=== PATIENT | female | born 2000 | race Two or more races ===

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

== ENCOUNTER 2021-01-04 09:02 | Outpatient (REF) | payer OTHER, SELFPAY ==
[2021-01-04 10:13] LABS: MANUAL DIFF FLAG NO
[2021-01-04 10:14] LABS: Basophils Percent Auto 0.6 % (0-2); Eosinophils Percent Auto 0.4 % (0-4); Hematocrit 40.1 % (37-47); Hemoglobin 12.9 g/dl (12.0-16.0); Imm Gran Abs Auto 0.03 X10*3/uL (0.00-0.03); Imm Gran Pct Auto 0.4 % (0.0-0.4); Lymphocytes Absolute Auto 2.3 X10*3/uL (1.2-4.9); Lymphocytes Percent Auto 32.8 % (20-40); Mean Corpuscular HGB Conc 32.2 g/dl (31.0-35.0); Mean Corpuscular Hemoglobin 28.8 pg (27.0-33.0); Mean Corpuscular Volume 89.5 fL (80-98); Mean Platelet Volume 10.2 fL (9.4-12.3); Monocytes Absolute Auto 0.4 X10*3/uL (0.1-1.2); Monocytes Percent Auto 5.9 % (2-11); Neutrophils Absolute Auto 4.3 X10*3/uL (2.0-8.3); Neutrophils Percent Auto 59.9 % (45-73); Platelet Count 313 X10*3/uL (160-400); Red Blood Count 4.48 X10*6/uL (4.20-5.50); Red Cell Distribution Width 12.8 % (11.0-16.0); White Blood Count 7.1 X10*3/uL (4.8-10.8)
[2021-01-04 11:07] LABS: Iron 93 mcg/dL (30-160)
[2021-01-04 11:16] LABS: Ferritin 24 ng/mL (10-122)
[2021-01-08 15:06] LABS: Percent Iron Saturation 21 % (15-50); Total Iron Binding Capacity 445 mcg/dL (228-428); Unsaturated Iron Binding 352 ug/dL
== END 2021-01-04 09:03 | disposition home or self-care (01) ==
LOC: HO.LAB 09:02
PROVIDERS: PCP Pediatrics; Visit Provider Pediatrics
DX: E61.1 Iron deficiency (principal)
CPT/HCPCS: 36415; 82728; 83540; 85025

== ENCOUNTER 2021-05-29 09:35 | Outpatient (REF) | payer OTHER, SELFPAY ==
[2021-05-29 11:45] LABS: COVID-19 Test Negative (Negative)
== END 2021-05-29 09:36 | disposition home or self-care (01) ==
LOC: HO.LAB 09:35
PROVIDERS: Visit Provider Internal Medicine
DX: Z20.822 Contact with and (suspected) exposure to COVID-19 (principal)
CPT/HCPCS: 87635; C9803

== ENCOUNTER 2021-06-24 09:08 | Outpatient (REF) | payer OTHER, SELFPAY ==
[2021-06-24 09:29] LABS: COVID-19 Test Negative (Negative); IDNOW Serial# 16C4AD1C
== END 2021-06-24 09:09 | disposition home or self-care (01) ==
LOC: HO.LAB 09:08
PROVIDERS: PCP Pediatrics; Visit Provider Internal Medicine
DX: Z20.822 Contact with and (suspected) exposure to COVID-19 (principal)
CPT/HCPCS: 87635; C9803

== ENCOUNTER 2021-07-15 16:42 | Emergency (ER) | payer OTHER, SELFPAY ==
[2021-07-15 18:33] VITALS: BP 131/77; PULSE 84; RESP 18; TEMP 37.1; O2SAT 100; BMI 22.1
[2021-07-15 20:09] LABS: Basophils Percent Auto 0.5 % (0-2); Eosinophils Percent Auto 0.3 % (0-4); Hematocrit 41.5 % (37.0-47.0); Hemoglobin 13.2 g/dl (12.0-16.0); Imm Gran Abs Auto 0.03 X10*3/uL (0.00-0.03); Imm Gran Pct Auto 0.4 % (0.0-0.4); Lymphocytes Percent Auto 27.2 % (20-40); MANUAL DIFF FLAG NO; Mean Corpuscular HGB Conc 31.8 g/dl (31.0-35.0); Mean Corpuscular Hemoglobin 29.1 pg (27.0-33.0); Mean Corpuscular Volume 91.4 fL (80.0-98.0); Mean Platelet Volume 9.5 fL (9.4-12.3); Monocytes Absolute Auto 0.4 X10*3/uL (0.1-1.2); Monocytes Percent Auto 5.3 % (2-11); Neutrophils Percent Auto 66.3 % (45-73); Platelet Count 288 X10*3/uL (160-400); Red Blood Count 4.54 X10*6/uL (4.20-5.50); Red Cell Distribution Width 11.9 % (11.0-16.0); White Blood Count 7.5 X10*3/uL (4.8-10.8)
[2021-07-15 20:10] LABS: Appearance Urine CLEAR; Color Urine YELLOW; Glucose Urine UA NEG (NEG); Leukocyte Esterase Urine NEG (NEG); Nitrite Urine NEG (NEG); Specific Gravity - Urine 1.015 (1.005-1.025); Urine Blood NEG (NEG); Urine Ketones NEG (NEG); Urine Protein NEG (NEG-TRACE)
[2021-07-15 20:12] LABS: UPreg QC Valid YES; Urine Pregnancy NEGATIVE (NEGATIVE)
[2021-07-15 20:28] LABS: Alanine Aminotransferase 16 U/L (0-31); Albumin Level 4.5 g/dL (3.5-5.0); Alkaline Phosphatase 48 U/L (39-117); Anion Gap 11 (12-20); Aspartate Amino Transferase 18 U/L (5-31); Bilirubin Total 0.4 mg/dL (0.0-1.0); Blood Urea Nitrogen 8 mg/dL (9-16); Calcium 9.7 mg/dL (8.4-10.2); Carbon Dioxide 26 mmol/L (22-29); Chloride 103 mmol/L (96-108); Creatinine Clr Calc Pharmacy 110.1; Estimated Glomerular Filt Rate > 60; Glucose Random 91 mg/dL (60-115); Potassium 4.3 mmol/L (3.3-5.1); Sodium 136 mmol/L (135-145); Total Protein 7.5 g/dL (6.5-8.0)
--- NOTE | 2021-07-15 21:51 | ED_ITS ---
HPI - Abdominal Pain General Chief Complaint: Abdominal Pain Stated Complaint: lower abd pain Time Seen by Provider: 07/15/21 21:50 Source: patient Mode of arrival: ambulatory Limitations: no limitations History of Present Illness HPI narrative: Patient is a 20 year old female presenting to the emergency department today with abdominal pain. Patient states that she has had 3 days of lower back pain and abdominal pain. Patient denies any dizziness, lightheadedness, nausea, vomiting, fever, chills, blurry vision, double vision, loss of vision, chest pain, difficulty breathing, shortness of breath, back pain, night sweats, pain with urination, increased urinary frequency, increased urinary urgency, blood in her urine or stool, vaginal bleeding, vaginal discharge, syncope or a near syncopal episode, recent trauma or falls, bowel incontinence, bladder incontinence, bowel retention, bladder retention, or any other complaints at this time. MD elicited complaint: abdominal pain Pertinent past history: none Related Data Previous Rx's Medication Instructions Recorded prednisone 50 mg tablet 50 mg PO DAILY #5 tab 10/02/20 Allergies Allergy/AdvReac Type Severity Reaction Status Date / Time No Known Allergies Allergy Verified 07/15/21 18:33 Review of Systems Constitutional: Reports no additional constitutional complaints, Denies chills, Denies fever(s) and Denies night sweats Eyes: Reports no additional eye complaints, Denies blurry vision, Denies change in vision, Denies diplopia, Denies eye discharge, Denies loss of vision and Denies eye pain Denies dizziness Cardiovascular: Reports no additional cardiovascular complaints, Denies chest pain, Denies lightheadedness, Denies Loss of Consciousness and Denies dyspnea Respiratory: Reports no additional respiratory complaints and Denies dyspnea Gastrointestinal: Reports no additional gastrointestinal complaints, Reports abdominal pain, Denies melena, Denies hematochezia, Denies change in bowel habits and Denies change in stool character Genitourinary: Denies hematuria, Denies urinary frequency, Denies dysuria, Denies urinary incontinence, Denies urinary hesitancy and Denies urinary urgency Musculoskeletal: Reports no additional musculoskeletal complaints, Denies numbness and Denies tingling Denies dizziness, Denies loss of vision, Denies numbness and Denies tingling Psychiatric: Reports no additional psychiatric complaints Endocrine: Reports no additional endocrine complaints Hematologic/Lymphatic: Reports no additional hematologic/lymphatic complaints Allergic/Immunologic: Reports no additional allergic/immunologic complaints PMFSH Past Medical History Attestation statement: The following information was validated with the patient. Source: old records reviewed Medical History Asthma Social History Social History Advance Directives: No Advance Directives Information Provided: No Physical Exam ED Vital Signs: Vital Signs - 24 hr 07/15/21 18:33 Temperature 98.7 F Pulse Rate 84 Respiratory Rate 18 Blood Pressure 131/77 Pulse Oximetry 100 BMI result Body Mass Index 22.1 Const General: cooperative, no acute distress, alert and awake Nutritional Appearance: well nourished Orientation/consciousness: patient oriented x3 Limitations: no limitations HENMT Head: Yes normal to inspection and Yes atraumatic Ears: hearing grossly normal bilaterally and external ears normal General nose exam: Normal external nose present, no nasal discharge noted and no epistaxis Face and sinus: Yes normal facial exam, No abrasion and No laceration Mouth: Normal oral and palatal mucosa present, no drooling and no muffled voice Eyes General: appearance normal, both eyes and all related structures Periorbital: periorbital findings normal Eyelids: Yes eyelids normal Conjunctivae: conjunctivae normal Pupils: Equal, round and reactive pupils present EOM: EOMs intact bilaterally Neck Neck: Yes normal visual inspection, Yes full ROM and Yes no lymphadenopathy Chest Chest palpation & inspection: normal inspection of the chest Resp Effort & Inspection: normal respiratory effort and able to speak in complete sentences GI Inspection: Yes normal to inspection Palpation (GI): Soft to palpation, not firm and nontender Neuro General: patient oriented x3 and moves all extremities Cranial nerves: Yes Equal, round and reactive pupils present Cognition (Neuro): normal cognition Motor exam (neuro): 5/5 motor strength present throughout Sensory Exam: Normal double simultaneous stimulation for sensation Coordination: [id number] test normal Extrem General: Yes normal to inspection, Yes full ROM and Yes capillary refill normal Psych Appearance: grossly normal Mental Status: mental status grossly normal Affect: normal affect Attitude: cooperative Thought process: Normal thought process present Thought content: Normal thought content present Insight: Good insight present (Psych) MDM - Abdominal Pain MDM Narrative Medical decision making narrative: Patient is a 20 year old female presenting to the emergency department today with abdominal pain. Patient's physical exam was unremarkable, including a normal GI exam. Patient's blood work was unremarkable. Patient's urine showed no acute process. I explained my physical exam findings as well as all test results to the patient. I answered all questions asked by the patient. Patient received IM Toradol which she stated helped her symptoms significantly. I stressed the importance of the patient taking her medication as prescribed. I stressed the importance of the patient following up with her primary care provider. I stressed the importance of the patient returning to the emergency department immediately if her symptoms were to worsen or if she were to develop any dizziness, shortness of breath, difficulty breathing, chest pain, blurry vision, loss of vision, nausea, vomiting, abdominal pain, fever, chills, back pain, or any other complaints. Patient verbalized agreement and understanding with this treatment plan and discharge. Differential Diagnosis Differential diagnosis: Likely abdominal pain and endometriosis Medical Records Attestation: I reviewed the patient's medical records. Lab Data Attestation: I reviewed the patient's lab results. Result diagrams: 07/15/21 19:59 07/15/21 19:59 Labs: Lab Results 07/15/21 07/15/21 07/15/21 Range/Units 19:59 19:59 20:00 WBC 7.5 (4.8-10.8) X10*3/uL RBC 4.54 (4.20-5.50) X10*6/uL Hgb 13.2 (12.0-16.0) g/dl Hct 41.5 (37.0-47.0) % MCV 91.4 (80.0-98.0) fL MCH 29.1 (27.0-33.0) pg MCHC 31.8 (31.0-35.0) g/dl RDW 11.9 (11.0-16.0) % Plt Count 288 (160-400) X10*3/uL MPV 9.5 (9.4-12.3) fL Immature Gran % (Auto) 0.4 (0.0-0.4) % Neut % (Auto) 66.3 (45-73) % Lymph % (Auto) 27.2 (20-40) % Trinity % (Auto) 5.3 (2-11) % Eos % (Auto) 0.3 (0-4) % Baso % (Auto) 0.5 (0-2) % Lymph # (Auto) 2.0 (1.2-4.9) X10*3/uL Trinity # (Auto) 0.4 (0.1-1.2) X10*3/uL Eos # (Auto) 0.0 (0.0-0.4) X10*3/uL Baso # (Auto) 0.0 (0.0-0.2) X10*3/uL Abs Immat Gran (auto) 0.03 (0.00-0.03) X10*3/uL Absolute Neuts (auto) 5.0 (2.0-8.3) x10*3/uL Absolute Nucleated RBC 0.000 (0.0-0.012) X10*3/uL Nucleated RBC % (auto) 0.0 (0.0-0.2) /100WBC Sodium 136 (135-145) mmol/L Potassium 4.3 (3.3-5.1) mmol/L Chloride 103 (96-108) mmol/L Carbon Dioxide 26 (22-29) mmol/L Anion Gap 11 L (12-20) BUN 8 L (9-16) mg/dL Creatinine 0.68 (0.5-1.4) mg/dL Estim Creat Clear Calc 110.1 Estimated GFR > 60 Random Glucose 91 (60-115) mg/dL Calcium 9.7 (8.4-10.2) mg/dL Total Bilirubin 0.4 (0.0-1.0) mg/dL AST 18 (5-31) U/L ALT 16 (0-31) U/L Alkaline Phosphatase 48 (39-117) U/L Total Protein 7.5 (6.5-8.0) g/dL Albumin 4.5 (3.5-5.0) g/dL Urine Color Urine Appearance Urine pH (5.0-8.0) Ur Specific [place] (1.005-1.025) Urine Protein (NEG-TRACE) MG/DL Urine Glucose (UA) (NEG) MG/DL Urine Ketones (NEG) MG/DL Urine Blood (NEG) Urine Nitrite (NEG) Ur Leukocyte Esterase (NEG) Urine Test NEGATIVE (NEGATIVE) 07/15/21 Range/Units 20:00 WBC (4.8-10.8) X10*3/uL RBC (4.20-5.50) X10*6/uL Hgb (12.0-16.0) g/dl Hct (37.0-47.0) % MCV (80.0-98.0) fL MCH (27.0-33.0) pg MCHC (31.0-35.0) g/dl RDW (11.0-16.0) % Plt Count (160-400) X10*3/uL MPV (9.4-12.3) fL Immature Gran % (Auto) (0.0-0.4) % Neut % (Auto) (45-73) % Lymph % (Auto) (20-40) % Trinity % (Auto) (2-11) % Eos % (Auto) (0-4) % Baso % (Auto) (0-2) % Lymph # (Auto) (1.2-4.9) X10*3/uL Trinity # (Auto) (0.1-1.2) X10*3/uL Eos # (Auto) (0.0-0.4) X10*3/uL Baso # (Auto) (0.0-0.2) X10*3/uL Abs Immat Gran (auto) (0.00-0.03) X10*3/uL Absolute Neuts (auto) (2.0-8.3) x10*3/uL Absolute Nucleated RBC (0.0-0.012) X10*3/uL Nucleated RBC % (auto) (0.0-0.2) /100WBC Sodium (135-145) mmol/L Potassium (3.3-5.1) mmol/L Chloride (96-108) mmol/L Carbon Dioxide (22-29) mmol/L Anion Gap (12-20) BUN (9-16) mg/dL Creatinine (0.5-1.4) mg/dL Estim Creat Clear Calc Estimated GFR Random Glucose (60-115) mg/dL Calcium (8.4-10.2) mg/dL Total Bilirubin (0.0-1.0) mg/dL AST (5-31) U/L ALT (0-31) U/L Alkaline Phosphatase (39-117) U/L Total Protein (6.5-8.0) g/dL Albumin (3.5-5.0) g/dL Urine Color YELLOW Urine Appearance CLEAR Urine pH 7.0 (5.0-8.0) Ur Specific [place] 1.015 (1.005-1.025) Urine Protein NEG (NEG-TRACE) MG/DL Urine Glucose (UA) NEG (NEG) MG/DL Urine Ketones NEG (NEG) MG/DL Urine Blood NEG (NEG) Urine Nitrite NEG (NEG) Ur Leukocyte Esterase NEG (NEG) Urine Test (NEGATIVE) Discharge Plan Discharge Clinical Impression: Abdominal pain Patient Disposition: Home, Self-Care Instructions: Abdominal Pain (ED) Additional Instructions: Follow up with your primary care provider. Return to the emergency department immediately if your symptoms worsen or if you develop any dizziness, shortness of breath, difficulty breathing, chest pain, blurry vision, loss of vision, nausea, vomiting, abdominal pain, fever, chills, back pain, or any other complaints. Prescriptions: No Action prednisone 50 mg tablet 50 mg PO DAILY Qty: 5 0RF Referrals: Lucia Crowder MD [Primary Care Provider] - 2 days Nestor Ríos MD [Physician] - 2 days Stand Alone Forms: Work/School Release Interventions: ED Discharge Assessment Last Done: 07/15/21 23:01 Discharge Date/Time: 07/15/21 23:04 Print Language: Ecuadorean
[2021-07-15] MEDS: Ketorolac Tromethamine 30 MG/ML VIAL IM (22:42)
== END 2021-07-15 23:04 | disposition home or self-care (01) ==
PROVIDERS: Emergency Provider Internal Medicine; PCP Pediatrics
DX: R10.9 Unspecified abdominal pain (principal); M54.50 Low back pain, unspecified; Z79.899 Other long term (current) drug therapy
CPT/HCPCS: 36415; 80053; 81003; 81025; 85025; 96372; 99284; J1885

== ENCOUNTER 2021-07-30 13:46 | Outpatient (REF) | payer OTHER, SELFPAY ==
[2021-07-31 05:29] LABS: CT PCR NOT DETECTED (Not Detect.); NG PCR NOT DETECTED (Not Detect.)
== END 2021-07-30 13:47 | disposition home or self-care (01) ==
LOC: HO.LAB 13:46
PROVIDERS: PCP Pediatrics; Visit Provider Obstetrics & Gynecology
DX: Z01.411 Encounter for gynecological examination (general) (routine) with abnormal findings (principal); R10.2 Pelvic and perineal pain
CPT/HCPCS: 81003; 87491; 87591; 99212

== ENCOUNTER 2021-09-09 15:21 | Outpatient (REF) | payer OTHER, SELFPAY ==
--- NOTE | ~2021-09-09 | US_ITS ---
EXAMINATION: US PELVIS CLINICAL INFORMATION: Pelvic and perineal pain COMPARISON: None TECHNIQUE: Transabdominal pelvic ultrasound. Patient declined transvaginal exam. FINDINGS: The uterus is anteverted and measures 6.7 x 3 x 4.7 cm in dimension. No focal uterine lesion is seen. Endometrial thickness is normal measuring 0.6 cm. The ovaries are normal. The right ovary measures 2 x 1.6 x 1.5 cm. The left ovary measures 2.7 x 1.2 x 1.6 cm. There is no fluid in the pelvis. US/US pelvic complete IMPRESSION: Normal pelvic ultrasound
== END 2021-09-09 15:22 | disposition home or self-care (01) ==
LOC: HO.US 15:21
PROVIDERS: Visit Provider Obstetrics & Gynecology
DX: R10.2 Pelvic and perineal pain (principal)
CPT/HCPCS: 76856

== ENCOUNTER 2023-06-03 19:45 | Emergency (ER) | payer MEDICAID, SELFPAY ==
--- NOTE | ~2023-06-03 | XR_ITS ---
EXAMINATION: XR ABDOMEN KUB CLINICAL INDICATION: Constipation COMPARISON: None available. TECHNIQUE: AP view of the abdomen. FINDINGS: The bowel gas pattern is normal with no evidence of ileus or obstruction. Fairly normal stool burden is present in the colon with almost no stool seen in the descending or rectosigmoid. No unusual soft tissue calcifications are noted. The bones are unremarkable. XR/XR KUB IMPRESSION: Unremarkable examination.
[2023-06-03 20:09] VITALS: BP 132/86; PULSE 79; RESP 16; TEMP 36.3; O2SAT 100; BMI 23.4
--- NOTE | 2023-06-03 20:10 | ED.GENADULT ---
HPI - General Adult General Chief complaint: General Medical Stated complaint: constipation Time Seen by Provider: 06/04/23 00:31 Related Data Home Medications ?Medication ?Instructions ?Recorded ?Confirmed budesonide 180 mcg/actuation 1 inh inhalation BID 07/30/21 breath activated powder inhaler (Pulmicort Flexhaler) Previous Rx's ?Medication ?Instructions ?Recorded docusate sodium 100 mg capsule 100 mg PO DAILY PRN constipation 06/04/23 (Colace) #30 caps Allergies Allergy/AdvReac Type Severity Reaction Status Date / Time No Known Allergies Allergy Verified 06/03/23 20:09 [facility] Past Medical History Onset Date is defined in the Problem List Problems that require an onset date and time if occurred within 24 hrs of arrival to the ED Aortic Dissection and Rupture; Neurologic impairment; Cardiopulmonary Arrest; Endotracheal Intubation; Insertion or Replacement of Mechanical Circulatory Assist Device Medical History Asthma Social History Social History Unable to assess alcohol history related to: Unknown Patient Tobacco Use Status: Never used Tobacco Smoked in Last 30 Days: No Advance Directives: No Advance Directives Information Provided: No Gender identity: Female Physical Exam ED Vital Signs: BMI result Body Mass Index 23.4 Course Course Course Narrative: RME- 22 year old female presents for evaluation of constipation. She reports that she has not had a bowel movement in 4 days. Denies any abdominal or rectal pain Medications Administered Discontinued Medications Generic Name Dose Route Start Last Admin Trade Name Freq PRN Reason Stop Dose Admin Magnesium Hydroxide 30 ml 06/04/23 00:38 06/04/23 00:49 Milk Of Magnesia 30 Ml Oral.Susp PO 06/04/23 00:39 30 ml ONCE ONE Administration Discharge Plan Discharge Clinical Impression: Constipation Patient Disposition: Home, Self-Care Instructions: Constipation (ED) Additional Instructions: Drink plenty of fluids and have lot of fibers Have prunes daily Colace 1-2 capsules daily for severe constipation as needed Prescriptions: New docusate sodium [Colace] 100 mg capsule 100 mg PO DAILY PRN (Reason: constipation) Qty: 30 0RF No Action Pulmicort Flexhaler 180 mcg/actuation aerosol powdr breath activated 1 inh inhalation BID Interventions: ED Discharge Assessment Last Done: 06/04/23 00:53 Discharge Date/Time: 06/04/23 00:53 Print Language: Lithuanian
[2023-06-04] MEDS: Milk of Magnesia 30 ML ORAL.SUSP PO (00:49)
[2023-06-04 00:52] VITALS: PULSE 82; RESP 16; O2SAT 100
== END 2023-06-04 00:53 | disposition home or self-care (01) ==
PROVIDERS: Emergency Provider Internal Medicine
DX: K59.00 Constipation, unspecified (principal); R10.2 Pelvic and perineal pain
CPT/HCPCS: 74018; 99283; 99284

== ENCOUNTER 2023-12-14 12:47 | Outpatient (REF) | payer MEDICAID, SELFPAY ==
[2023-12-14 13:00] LABS: MANUAL DIFF FLAG NO
[2023-12-14 13:54] LABS: Basophils Percent Auto 0.6 % (0-2); Eosinophils Percent Auto 0.3 % (0-4); Hematocrit 39.3 % (37.0-47.0); Imm Gran Abs Auto 0.02 X10*3/uL (0.00-0.03); Imm Gran Pct Auto 0.3 % (0.0-0.4); Lymphocytes Absolute Auto 1.9 X10*3/uL (1.2-4.9); Lymphocytes Percent Auto 27.9 % (20-40); Mean Corpuscular HGB Conc 33.1 g/dl (31.0-35.0); Mean Corpuscular Hemoglobin 29.3 pg (27.0-33.0); Mean Corpuscular Volume 88.7 fL (80.0-98.0); Mean Platelet Volume 10.4 fL (9.4-12.3); Monocytes Absolute Auto 0.4 X10*3/uL (0.1-1.2); Monocytes Percent Auto 5.7 % (2-11); Neutrophils Absolute Auto 4.3 x10*3/uL (2.0-8.3); Neutrophils Percent Auto 65.2 % (45-73); Platelet Count 284 X10*3/uL (160-400); Red Blood Count 4.43 X10*6/uL (4.20-5.50); Red Cell Distribution Width 11.9 % (11.0-16.0); White Blood Count 6.6 X10*3/uL (4.8-10.8)
[2023-12-14 14:43] LABS: Cholesterol 193 mg/dL (<200); HDL Cholesterol 62 mg/dL (>40); Iron 101 mcg/dL (30-160); LDL Cholesterol Calculated 112 mg/dL (<100); Percent Iron Saturation 24 % (15-50); Total Iron Binding Capacity 415 mcg/dL (228-428); Triglycerides 99 mg/dL (<150); Unsaturated Iron Binding 314 ug/dL
[2023-12-14 14:48] LABS: Ferritin 22 ng/mL (10-122); TSH reflex Free T4 0.92 uIU/mL (0.32-4.0)
[2023-12-14 16:29] LABS: CT PCR NOT DETECTED (Not Detect.); NG PCR NOT DETECTED (Not Detect.)
[2023-12-15 04:32] LABS: HIV AB/AG Nonreactive (Nonreactive); HIV Num 1 0.04 S/CO (0.00-0.99); ~HepC Num1 0.09 S/CO (0.00-0.79); ~Hepatitis C Antibody Nonreactive (Nonreactive)
== END 2023-12-14 12:48 | disposition home or self-care (01) ==
LOC: HO.LAB 12:47
PROVIDERS: PCP Family Medicine; Visit Provider Family Medicine
DX: Z12.4 Encounter for screening for malignant neoplasm of cervix (principal); Z13.9 Encounter for screening, unspecified; N94.6 Dysmenorrhea, unspecified; Z79.3 Long term (current) use of hormonal contraceptives; F41.8 Other specified anxiety disorders
CPT/HCPCS: 36415; 80061; 82728; 83540; 84443; 85025; 86803; 87389; 87491; 87591; 88175

== ENCOUNTER 2024-07-07 15:22 | Outpatient (REF) | payer MEDICAID, SELFPAY ==
--- OUTSIDE RECORDS SUMMARY | 2024-07-07 15:24 | XMS_ITS | Encounter Summary ---
Author Organization [facility] [employer] Address [address] [place] [address] Care Team Providers Care Sand Hauler Name Role Phone Melissa Stauffer MD Primary Care Provider [phone] Encounter Details Date Type Department Care Team ([facility] st Contact Info) Description 07/07/2024 3:05 PM EST Immunization [facility] [address] [place], [place] [id number] Bobbi Curry LPN Screening examination for pulmonary tuberculosis (Primary Dx); Encounter for immunization Social History Tobacco Use Types Packs/Day Years Used Date Smoking Tobacco: Never Passive Smoke Exposure: Never Smokeless Tobacco: Never Alcohol Use Standard Drinks/Week Comments Never 0 (1 standard drink = 0.6 oz pur e alcohol) Alcohol Answer Date Recorded Frequency of Alcohol Consumption Not on file 12/09/2023 Average Number of Drinks Not on file 024 Frequency of Binge Drinking Not on file 11/15 Score 0 12/09/2023 Depression Answer Date Recorded Patient Health Questionnaire-9 Score 17 02/18/2024 Patient Health Questionnaire-9 Score 17 02/18/2024 Last PHQ-9: Questionnaire Data Not on file 1 Housing Stability Answer Date Recorded What is your housing situation today? I have jevon gonsalez 09/14/[address] you li ve. Do you have problems with any of the following? None of the above 09/14/2023 Food Insecurity Answer Date Recorded Within the past 12 months, y ou worried that your food would run out before you got money to buy more: Never True 09/14/2023 Within the past 12 months,th e food you bought just didn't last and you didn't have enough money to get more: Never True Transportation Answer Date Recorded In the past 12 months, has l ack of transportation kept you from medical appts, meetings, work or from getting things needed for daily living? No 09/14/2023 Utilities Answer Date Recorded In the past 12 months, has t he electric, gas, oil or water company threatened to shut off services in your home? No 09/14/2023 Depression Answer Date Recorded Patient Health Questionnaire-2 Score 4 02/18/2024 Internet Access Answer Date Recorded Internet Access Q1 Yes 01/17/2024 Internet Access Q2 Not on file 01/17/2024 Comments Unknown Sex and Gender Information Value Date Recorded Sex Assigned at Female 03/16/2022 10:38 AM EDT Legal Sex Female 10:38 AM EDT Gender Identity Female 03/16/2022 10:38 AM EDT Sexual Orientation Straight 12/10/2023 9: 47 AM EDT documented as of this encounter Progress Notes * Bobbi Curry LPN - 07/07/2024 3:05 PM EST Subjective Patient ID: Meir Anne is a 23 y.o. female who presents here to receive Fluarix Trivalent, Preservative-Free, [id number] seasonal Influenza vaccine. Pt's Influenza Intake form, and guardian reporting, indicated no contraindication to vaccination. Pt educated as to potential side effects of vaccine including fever, muscle aches & headache. Pt tolerated injection well and monitored for 15 minutes post injection. Pt also had orders placed for a T-Spot to be conducted at [facility] lab. documented in this encounter Plan of Treatment Scheduled Orders Name Type Priority Associated Diagnoses Orde r Schedule T-SPOT??.TB Lab Routine Screening examination for pulmonary tuberculosis Expected: 07/07/2024 (Approximate), Expires: 07/07/2025 documented as of this encounter Visit Diagnoses Diagnosis Screening examination for pulmonary tuberculosis- Primary Encounter for immunization documented in this encounter Additional Health Concerns Assessment Noted Time PHQ-9 Depression Total Score: 17 024 8:44 AM EDT documented as of this encounter Care Teams Sand Hauler Relationship Specialty Start Date End Date Melissa Stauffer MD [address] [place] [address] PCP - General Family Medicine 12/09/23 documented as of this encounter
--- OUTSIDE RECORDS SUMMARY | 2024-07-07 15:24 | XMS_ITS | Encounter Summary ---
Author Organization [facility] Address [address] [place] [id number] Phone Care Team Providers Care Area Operations Director Name Role Phone Provider, Terri WALSH Primary Care Provider [phone] Encounter Details Date Type Department Care Team (Late st Contact Info) Description 02/07/2015 Documentation [facility] [address] [place], [place] [phone] Family Medicine, Physician [address] [place], [place] [phone] Social History Tobacco Use Types Packs/Day Years Used Date Smoking Tobacco: Never Assessed Comments Unknown Sex and Gender Information Value Date Recorded Sex Assigned at Female 10/22/2020 9:07 AM EDT Legal Sex Female 5:12 PM EDT Gender Identity Female 04/02/2020 9:42 PM EST Sexual Orientation Straight 10/18/2019 10 :45 AM EDT documented as of this encounter Plan of Treatment Not on file documented as of this encounter Visit Diagnoses Not on filedocumented in this encounter Care Teams Area Operations Director Relationship Specialty Start Date End Date Provider, MD Terri [address] [place] [phone] PCP - General Pediatrics 12/23/22 03/16/23 documented as of this encounter
--- OUTSIDE RECORDS SUMMARY | 2024-07-07 15:24 | XMS_ITS | Encounter Summary ---
Author Organization [employer] Address [address] [place] [address] Care Team Providers Care Spinning Lathe Operator Hydraulic Name Role Phone Melissa Stauffer MD Primary Care Provider [phone] Encounter Details Date Type Department Care Team ([facility] st Contact Info) Description 06/28/2024 3:00 PM EST Immunization [facility] [address] [place], [place] [id number] Bobbi Curry LPN Encounter for immunization (Primary Dx) Social History Tobacco Use Types Packs/Day Years [...] Progress Notes * Bobbi Curry LPN - 06/28/2024 3:00 PM EST Subjective Patient ID: Meir Anne is a 23 y.o. female who presents Pt here for PCV 20, pneumococcal conjugate, vaccine to meet, per pt, [place] [facility] [place] program. Pt reporting and record indicate no contraindications to vaccination. Pt advised that they could experience pain/redness/swelling @ injection site with a potential to experience head ache, loss of appetite, fever, joint pain, chills following vaccination. Pt states understanding and agrees to vaccination. Pt here for Tdap vaccine. Pt advised that there may be minor redness/swelling/pain at the injectionsite. Pt educated as to potential side effects of Tdap vaccine that could include mild fever/headache/ fatigue/nausea vomiting/ diarrhea/stomachaches. Pt expressed understanding that [facility] recommends remaining 15 minutes post- vaccination for observation. documented in this encounter Plan of Treatment Not on file documented as of this encounter Visit Diagnoses Diagnosis Encounter for immunization- Primary documented in this encounter Additional Health Concerns Assessment Noted Time PHQ-9 Depression Total Score: 17 024 8:44 AM EDT documented as of this encounter Care Teams Spinning Lathe Operator Hydraulic Relationship Specialty Start Date End Date Melissa Stauffer MD [address] [place] [address] PCP - General Family Medicine 12/09/23 documented as of this encounter
--- OUTSIDE RECORDS SUMMARY | 2024-07-07 15:24 | XMS_ITS | Clinical Summary ---
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 Sexual Orientation Straight 10/18/2019 10 :45 AM EDT Last Filed Vital Signs Vital Sign Reading Time Taken Comments Blood Pressure 111/72 10/19/2022 1:21 PM EDT Pulse 85 10/19/2022 1:21 PM EDT Temperature 37 ??C (98.6 ??F) 12/07/2022 11:32 AM EDT Respiratory Rate 26 01/01/2020 1:34 PM EDT Oxygen Saturation - - Inhaled Oxygen Concentration - - Weight 60.4 kg (133 lb 3.2 oz) 12/07/2022 11:32 AM EDT Height 161 cm (5' 3.39 ) 10/19/2022 1:21 PM EDT Body Mass Index 23.31 10/19/2022 1:21 PM EDT Plan of Treatment Health Maintenance Due Date Last Done Comments Influenza Vaccines (#1) 2023 01/30/20 21, 02/28/2020, 10/18/2019, Additional history exists COVID-19 Vaccine (2023-2 5 season) 2024 05/30/2021, 10/31/2020, 10/03/2020 DTaP,Tdap,and Td Vaccines (7 - Td or Tdap) 02/02/2024 02/01/2014, 02/11/2006, 03/20/2003, Additional history exists Hepatitis B Vaccines Completed 05/29/2002, 2001, 2001 HIB Vaccines Completed 12/04/2002, 11/2001, 2001, Additional history exists IPV Vaccines Completed 02/11/2006, 05/17, 2001, Additional history exists MMR Vaccines Completed 02/11/2006, 09/12/2002 Varicella Vaccines Completed 02/03/2007, 09/12/2002 Hepatitis A Vaccines Completed 12/17/2014, 02/02/20 14 HPV Vaccines Completed 02/06/2016, 07/2014, 02/01/2014 Meningococcal Vaccine Completed 07/20/2018, 014 Pneumococcal Vaccine Completed 10/21/2020, 12/04/2002, 02/20/2002, Additional history exists Men B Vaccine Completed 10/22/2021, 10/21/2020 Procedures * Due to [place] [employer] law, this organization might not be sharing sensitive test results. Procedure Name Priority Date/Time Associated Diagnosis Comments CHLAMYDIA AND GONORRHEA, AMPLIFIED Routine 12/07/2022 12:05 PM EDT Screening examination for bacterial and spirochetal disease from Last 3 Months or Most Recently Relevant to Health Maintenance Results * Due to [place] [employer]ab[employer] law, this organization might not be sharing sensitive test results. * Chlamydia and Gonorrhea, Amplified (12/07/2022 12:05 PM EDT) Chlamydia Trachomatis, DNA Probe NEGATIVE (NEG) [facility] Comment: No Chlamydia Trachomatis RNA detected in this patient's sample ? (REFERENCE RANGE/NORMAL VALUE: NOT DETECTED) ? Note: This test uses electric razor assembler- mediated amplification method to detect rRNA from C. Trachomatis URINE GC AMP PROBE NEGATIVE (NEG) [facility] Comment: No Neisseria Gonorrhoeae RNA detected in this patient's sample ? (REFERENCE RANGE/NORMAL VALUE: NOT DETECTED) ? NOTE: This test uses electric razor assembler-mediated amplification method to detect rRNA from N.Gonorrhoeae. A negative result does not preclude infection. In the case of a negative urine result, testing of an endocervical(female) or urethral (male) specimen is recommended if there is high clinical suspicion of infection. Due to very high sensitivity of Nucleic Acid Amplification Test, false positive results may occur. Therefore, specimen handling is extremely important. In patients in whom the disease is unlikely, additional sample for testing should be considered after an initial positive result. The performance characteristics of this test have not been evaluated in children. The Aptima Combo2 assay is not intended for the evaluation of suspected sexual abuse or for other medico-legal indications. The ordering provider should assess if the patient had consensual sex without risk of sexual abuse. Consult the [facility] if needed. Contact phone number . Therapeutic failure or success cannot be determined with the Aptima Combo2 assay since nucleic acid may persist following appropriate antimicrobial therapy. The Centers for Disease Control and Prevention (CDC) recommends confirmatory retesting using culture or a different nucleic acid amplification test when positive results occur, if indicated. Testing performed or reported by [facility], a Service of [facility], [facility] [place] [address] Flako Frank MD, Commercial Front Load Driver [facility]# [id number] Urine (Urine) 12/07/2022 12: 05 PM EDT 12/07/2022 1:58 PM EDT us Sue Schneider MD LAB MICROBIOLOGY - GENERAL ORDERABLES Final Result [facility] from Last 3 Months or Most Recently Relevant to Health Maintenance Insurance * Guarantor: YASMINE MALLOY Account Type Relation to Patient Date of Phone Billing Address Personal/Family Mother 1970 [address] [place] [id number] [facility] NON P[facility] [employer] Address: [address] [address] [place] [address] * Guarantor: YASMINE MALLOY Account Type Relation to Patient Date of Phone Billing Address Behavioral Health Mother 1970 [address] [place] [id number]
--- OUTSIDE RECORDS SUMMARY | 2024-07-07 15:24 | XMS_ITS | Encounter Summary ---
Author Organization [facility] Address [address] [place] [address] Phone Care Team Providers Care Broodmare Foreman Name Role Phone Provider, Terri WALSH Primary Care Provider [phone] Reason for Visit * Reason Comments Med Refill Encounter Details Date Type Department Care Team ([facility] st Contact Info) Description 05/11/2022 Refill [facility] [place] [address] [place] [address] Lucia Crowder MD [address] [facility] [address] [place] [address] Screening for iron deficiency anemia; Anxiety with depression Social History Tobacco Use Types Packs/Day Years Used Date Smoking Tobacco: Never Smokeless Tobacco: Never Comments:Never smoker Alcohol Use Standard Drinks/Week Comments No 0 (1 standard drink = 0.6 oz pur e alcohol) Hunger/Food Answer Date Recorded In the last 12 months, did y ou or your family ever eat less than you felt you should because there wasn't enough money for food? No 10/22/2021 Stable Housing Answer Date Recorded Are you worried that in the next 2 months you may not have stable housing? No 10/22/2021 Transportation Concerns Answer Date Rec orded In the last 12 months, have you or your family ever had to go without healthcare because you didn't have a way to get there? No 10/22/2021 Hazards in Home Answer Date Recorded Think about the place you li ve. Do you have problems with any of the following? Pests (mice or roaches), mold, no/not working smoke detectors, water leaks, no window guards. No 2021 Financing Utilities Answer Date Recorde d In the last 12 months, has t he electric, gas, oil, or water company threatened to shut off your services in your home? No 10/22/2021 Safety at Home Answer Date Recorded Are you or your family worried about feeling saf e in your home? No 10/22/2021 Outside Support Answer Date Recorded Do you feel that you need mo re support from other people or programs to help you care for yourself or your family? No 10/22/2021 Understanding Health Concerns Answer Da te Recorded Do you need help understandi ng your or your child's healthcare needs (diagnosis, medications, plan, etc.)? No 10/22/2021 Financing Health Concerns Answer Date R ecorded In the last 12 months, was t here a time when your child needed to see a doctor or get medications or supplies but could not because of cost? No 10/22/2021 Missing School or Work Answer Date Flavio rded Did you or your child miss s chool or work because of a health problem that could have been avoided? No 10/22/2021 Comments No Sex and Gender Information Value Date Recorded Sex Assigned at Female 10/22/2020 9:07 AM EDT Legal Sex Female 5:12 PM EDT Gender Identity Female 04/02/2020 9:42 PM EST Sexual Orientation Straight 10/18/2019 10 :45 AM EDT documented as of this encounter Miscellaneous Notes * Telephone Encounter - Lucia Crowder MD - 05/15/2022 3:30 PM EST 30 day supply sent in. Pt was due for 15 min Mood/SSRI follow up in April- please book with me for Christian. * Telephone Encounter - Jack Meraz LPN - 05/11/2022 1:26 PM EST [facility] refill on sertraline 50 mg and ferrous gluconate 324. documented in this encounter Plan of Treatment Not on file documented as of this encounter Visit Diagnoses Diagnosis Screening for iron deficiency anemia Anxiety with depression documented in this encounter Care Teams Broodmare Foreman Relationship Specialty Start Date End Date Provider, MD Terri [address] [place] [phone] PCP - General Pediatrics 12/23/22 03/16/23 documented as of this encounter
--- OUTSIDE RECORDS SUMMARY | 2024-07-07 15:24 | XMS_ITS | Encounter Summary ---
Author Organization [facility] Address [address] [place] [address] Phone Care Team Providers Care Electrical Assistant Name Role Phone Provider, Terri WALSH Primary Care Provider [phone] Reason for Visit * Reason Comments Med Refill Encounter Details Date Type Department Care Team ([facility] st Contact Info) Description 04/24/2022 Refill [facility] [place] [address] [place] [address] Lucia Crowder MD [address] [facility] [address] [place] [address] Allergic rhinoconjunctivitis Social History Tobacco Use Types Packs/Day Years [...] encounter Miscellaneous Notes * Telephone Encounter - Marycruz Griffin LPN - 04/24/2022 11:21 AM EST Pharm requesting refill ceterizine 10mg tabs. Last PE 10/22/21 script last sent 07/16/21 90 day supply 1 refill documented in this encounter Plan of Treatment Not on file documented as of this encounter Visit Diagnoses Diagnosis Allergic rhinoconjunctivitis documented in this encounter Care Teams Electrical Assistant Relationship Specialty Start Date End Date Provider, MD Terri [address] [place] [phone] PCP - General Pediatrics 12/23/22 03/16/23 documented as of this encounter
--- OUTSIDE RECORDS SUMMARY | 2024-07-07 15:24 | XMS_ITS | Encounter Summary ---
Author Organization [employer] Address [address] [facility] [address] [place] [address] Care Team Providers Care Support Representative Name Role Phone Melissa Stauffer MD Primary Care Provider [phone] Encounter Details Date Type Department Care Team (Latest Contact Info) Description 07/07/2024 Travel Social History Tobacco Use Types Packs/Day Years [...] Diagnoses Not on filedocumented in this encounter Additional Health Concerns Assessment Noted Time PHQ-9 Depression Total Score: 17 024 8:44 AM EDT documented as of this encounter Care Teams Support Representative Relationship Specialty Start Date End Date Melissa Stauffer MD [address] [place] [address] PCP - General Family Medicine 12/09/23 documented as of this encounter
--- OUTSIDE RECORDS SUMMARY | 2024-07-07 15:24 | XMS_ITS | Encounter Summary ---
Author Organization [facility] Address [address] [place] [address] Phone Care Team Providers Care Shipping And Receiving Assistant Name Role Phone Provider, Terri AWLSH Primary Care Provider [phone] Reason for Visit * Reason Comments Med Refill Encounter Details Date Type Department Care Team ([facility] st Contact Info) Description 07/13/2021 Refill [facility] [place] [address] [place] [address] Lucia Crowder MD [address] [facility] [place] [address] Anxiety with depression; Allergic rhinoconjunctivitis Social History Tobacco Use Types [...] there wasn't enough money for food? No 10/21/2020 Stable Housing Answer Date Recorded Are you worried that in the next 2 months you may not have stable housing? No 10/21/2020 Transportation Concerns Answer Date Rec orded In the last 12 months, have you or your family ever had to go without healthcare because you didn't have a way to get there? No 10/21/2020 Hazards in Home Answer Date Recorded Think about the place you li ve. Do you have problems with any of the following? Pests (mice or roaches), mold, no/not working smoke detectors, water leaks, no window guards. No 2020 Financing Utilities Answer Date Recorde d In the last 12 months, has t he electric, gas, oil, or water company threatened to shut off your services in your home? No 10/21/2020 Safety at Home Answer Date Recorded Are you or your family worried about feeling saf e in your home? No 10/21/2020 Outside Support Answer Date Recorded Do you feel that you need mo re support from other people or programs to help you care for yourself or your family? No 10/21/2020 Understanding Health Concerns Answer Da te Recorded Do you need help understandi ng your or your child's healthcare needs (diagnosis, medications, plan, etc.)? No 10/21/2020 Financing Health Concerns Answer Date R ecorded In the last 12 months, was t here a time when your child needed to see a doctor or get medications or supplies but could not because of cost? No 10/21/2020 Missing School or Work Answer Date Flavio rded Did you or your child miss s chool or work because of a health problem that could have been avoided? No 10/21/2020 Comments No Sex and Gender Information Value Date Recorded Sex Assigned at Female 10/22/2020 9:07 AM EDT Legal Sex Female 5:12 PM EDT Gender Identity Female 04/02/2020 9:42 PM EST Sexual Orientation Straight 10/18/2019 10 :45 AM EDT documented as of this encounter Miscellaneous Notes * Telephone Encounter - Callie Bhatka LPN - 07/16/2021 8:37 AM EST I called teen -she is taking 50mg QD; I transferred her to appts to schedule a med check * Telephone Encounter - Lucia Crowder MD - 07/14/2021 10:43 AM EST Pt last seen 1 month ago and written for dose escalation from 50 mg to 75 mg with follow up in 6 weeks- with no appt booked. Please call pt to clarify if she has moved up to the 75 mg dose so I can send in a 30 day refill but she must book a follow up :) * Telephone Encounter - Callie Bhakta LPN - 07/13/2021 12:23 PM EST Faxed refill request / current with visits documented in this encounter Plan of Treatment Not on file documented as of this encounter Visit Diagnoses Diagnosis Anxiety with depression Allergic rhinoconjunctivitis documented in this encounter Care Teams Shipping And Receiving Assistant Relationship Specialty Start Date End Date Provider, MD Terri [address] [place] [phone] PCP - General Pediatrics 12/23/22 03/16/23 documented as of this encounter
--- OUTSIDE RECORDS SUMMARY | 2024-07-07 15:24 | XMS_ITS | Encounter Summary ---
Author Organization [employer] Address [address] [facility] 7[address] [place] [address] Care Team Providers Care Ladle Car Operator Name Role Phone Melissa Stauffer MD Primary Care Provider [phone] Encounter Details Date Type Department Care Team (Latest Contact Info) Description 06/28/2024 Travel Social History Tobacco Use Types Packs/Day [...] documented as of this encounter Care Teams Ladle Car Operator Relationship Specialty Start Date End Date Melissa Stauffer MD [address] [place] [address] PCP - General Family Medicine 12/09/23 documented as of this encounter
--- OUTSIDE RECORDS SUMMARY | 2024-07-07 15:25 | XMS_ITS | Encounter Summary ---
Author Organization [facility] Address [address] [place] [address] Phone Care Team Providers Care Mortgage Manager Name Role Phone Provider, Terri WALSH Primary Care Provider [phone] Reason for Visit * Reason Comments Med Refill Encounter Details Date Type Department Care Team ([facility] st Contact Info) Description 07/14/2020 Refill [facility] [place] [address] [place] [address] Lucia Crowder MD [address] [facility] [address] [place] [address] Anxiety with depression Social History Tobacco Use [...] there wasn't enough money for food? No 10/18/2019 Stable Housing Answer Date Recorded Are you worried that in the next 2 months you may not have stable housing? No 10/18/2019 Transportation Concerns Answer Date Rec orded In the last 12 months, have you or your family ever had to go without healthcare because you didn't have a way to get there? No 10/18/2019 Hazards in Home Answer Date Recorded Think about the place you li ve. Do you have problems with any of the following? Pests (mice or roaches), mold, no/not working smoke detectors, water leaks, no window guards. No 2019 Financing Utilities Answer Date Recorde d In the last 12 months, has t he electric, gas, oil, or water company threatened to shut off your services in your home? No 10/18/2019 Safety at Home Answer Date Recorded Are you or your family worried about feeling saf e in your home? No 10/18/2019 Outside Support Answer Date Recorded Do you feel that you need mo re support from other people or programs to help you care for yourself or your family? No 10/18/2019 Understanding Health Concerns Answer Da te Recorded Do you need help understandi ng your or your child's healthcare needs (diagnosis, medications, plan, etc.)? No 10/18/2019 Financing Health Concerns Answer Date R ecorded In the last 12 months, was t here a time when your child needed to see a doctor or get medications or supplies but could not because of cost? No 10/18/2019 Missing School or Work Answer Date Flavio rded Did you or your child miss s chool or work because of a health problem that could have been avoided? No 10/18/2019 Comments No Sex and Gender Information Value Date Recorded Sex Assigned at Female 10/22/2020 9:07 AM EDT Legal Sex Female 5:12 PM EDT Gender Identity Female 04/02/2020 9:42 PM EST Sexual Orientation Straight 10/18/2019 10 :45 AM EDT documented as of this encounter Miscellaneous Notes * Telephone Encounter - Luz Pascual LPN - 07/15/2020 10:45 AM EST Pharm fax refill request sertraline. Call to pharm as an Rx was sent on 07/10. Pharm said that Rx has 2 sets of direction and will Need a new Rx with updated directions. EH documented in this encounter Plan of Treatment Not on file documented as of this encounter Visit Diagnoses Diagnosis Anxiety with depression documented in this encounter Care Teams Mortgage Manager Relationship Specialty Start Date End Date Provider, MD Terri [address] [place] [phone] PCP - General Pediatrics 12/23/22 03/16/23 documented as of this encounter
--- OUTSIDE RECORDS SUMMARY | 2024-07-07 15:25 | XMS_ITS | Encounter Summary ---
Author Organization [facility] Address [address] [place] [address] Phone Care Team Providers Care Plant General Manager Name Role Phone Provider, Terri WALSH Primary Care Provider [phone] Reason for Visit * Reason Comments Med Refill Encounter Details Date Type Department Care Team (Late st Contact Info) Description 10/13/2018 Refill [facility] [place] [address] [place] [address] Sue Schneider MD [address] [place] [address] Acne vulgaris Social History Tobacco Use Types Packs/Day Years Used Date Smoking Tobacco: Never Smokeless Tobacco: Never Comments:Never smoker Alcohol Use Standard Drinks/Week Comments No 0 (1 standard drink = 0.6 oz pur e alcohol) Hunger/Food Answer Date Recorded No 07/20/2018 Stable Housing Answer Date Recorded 0 07/20/2018 Transportation Concerns Answer Date Rec orded No 07/20/2018 Hazards in Home Answer Date Recorded No 07/20/2018 Financing Utilities Answer Date Recorde d No 07/20/2018 Safety at Home Answer Date Recorded No 07/20/2018 Outside Support Answer Date Recorded No 07/20/2018 Understanding Health Concerns Answer Da te Recorded No 07/20/2018 Financing Health Concerns Answer Date R ecorded No 07/20/2018 Missing School or Work Answer Date Flavio rded No 07/20/2018 Comments No Sex and Gender Information Value Date Recorded Sex Assigned at Female 10/22/2020 9:07 AM EDT Legal Sex Female 5:12 PM EDT Gender Identity Female 04/02/2020 9:42 PM EST Sexual Orientation Straight 10/18/2019 10 :45 AM EDT documented as of this encounter Miscellaneous Notes * Telephone Encounter - Jack Meraz LPN - 10/13/2018 10:42 AM EDT Pharm is requesting a refill on control. Pt has a follow up apt scheduled for 10/27/18. documented in this encounter Plan of Treatment Not on file documented as of this encounter Visit Diagnoses Diagnosis Acne vulgaris Other acne documented in this encounter Care Teams Plant General Manager Relationship Specialty Start Date End Date Provider, MD Terri [address] [place] [phone] PCP - General Pediatrics 12/23/22 03/16/23 documented as of this encounter
--- OUTSIDE RECORDS SUMMARY | 2024-07-07 15:25 | XMS_ITS | Encounter Summary ---
Author Organization [facility] Address [address] [place] [address] Phone Care Team Providers Care Health Data Analyst Name Role Phone Provider, Terri WALSH Primary Care Provider Reason for Visit * Reason Onset Date Comments Med Refill 12/28/2020 Encounter Details Date Type Department Care Team (Late st Contact Info) Description 12/28/2020 Refill [facility] [place] [address] [place] [address] Lucia Crowder MD [address] [facility] [address] [place] [address] Acne vulgaris Social History Tobacco Use Types [...] Miscellaneous Notes * Telephone Encounter - Callie Bhakta LPN - 12/29/2020 12:06 PM EDT Faxed refill request / refill not needed / pt needs to reach out to the pharmacy for refills Script filled 12/23/20 for 84 tabs with 4 rf documented in this encounter Plan of Treatment Not on file documented as of this encounter Visit Diagnoses Diagnosis Acne vulgaris Other acne documented in this encounter Care Teams Health Data Analyst Relationship Specialty Start Date End Date Provider, MD Terri [address] [place] [phone] PCP - General Pediatrics 12/23/22 03/16/23 documented as of this encounter
--- OUTSIDE RECORDS SUMMARY | 2024-07-07 15:25 | XMS_ITS | Encounter Summary ---
Author Organization [facility] Address [address] [place] [address] Phone Care Team Providers Care Mobile Developer Name Role Phone Provider, Terri WALSH Primary Care Provider [phone] Reason for Visit * Reason Comments Med Refill Encounter Details Date Type Department Care Team ([facility] st Contact Info) Description 08/08/2020 Refill [facility] [place] [address] [place] [address] Lucia Crowder MD [address] [facility] [address] [place] [address] Anxiety with depression Social History Tobacco Use [...] Telephone Encounter - Lucia Crowder MD - 08/09/2020 1:19 PM EDT OK, that's unfortunate. May should be OK - I think she is doing well and that's why I have not heard from her :) * Telephone Encounter - Leopodlo Cruz - 08/08/2020 2:12 PM EDT I can't find one half hour slot in your entire month of August unless I took an Urgent Care slot. Please advise! Thank you! Leopoldo * Telephone Encounter - Lucia Crowder MD - 08/08/2020 11:13 AM EDT Thank you Feli. I just noted that pt has no mood f/up visit scheduled, but was recommended to be seen back in 1 month at her last med f/up in June, so she is technically overdue. I do not want her coming off her medication, so will resend, but need to get her booked for a f/up. I will ask the assistant front desk manager to reach out and get her booked. * Telephone Encounter - Feli Askew LPN - 08/08/2020 8:41 AM EDT Refill request for Sertraline. Last PE 10/18/19. Last FU 07/10/20/AGATHA documented in this encounter Plan of Treatment Not on file documented as of this encounter Visit Diagnoses Diagnosis Anxiety with depression documented in this encounter Care Teams Mobile Developer Relationship Specialty Start Date End Date Provider, MD Terri [address] [place] [phone] PCP - General Pediatrics 12/23/22 03/16/23 documented as of this encounter
--- OUTSIDE RECORDS SUMMARY | 2024-07-07 15:25 | XMS_ITS | Encounter Summary ---
Author Organization [facility] Address [address] [place] [phone] Phone Care Team Providers Care Cat Sitter Name Role Phone Provider, Terri WALSH Primary Care Provider [phone] Encounter Details Date Type Department Care Team (Late st Contact Info) Description 04/23/2011 Documentation [facility] [place] [facility] [address] [place], [place] [phone] Family Medicine, Physician [address] [place], [place] [phone] Social History Tobacco Use Types Packs/Day Years [...] on filedocumented in this encounter Care Teams Cat Sitter Relationship Specialty Start Date End Date Provider, MD Terri [address] [place] [phone] PCP - General Pediatrics 12/23/22 03/16/23 documented as of this encounter
--- OUTSIDE RECORDS SUMMARY | 2024-07-07 15:25 | XMS_ITS | Encounter Summary ---
Author Organization [facility] Address [address] [place] [address] Phone Care Team Providers Care Associate Entertainment Editor Name Role Phone Provider, Terri WALSH Primary Care Provider Reason for Visit * Reason Comments Med Refill Encounter Details Date Type Department Care Team (Late st Contact Info) Description 04/24/2021 Refill [facility] [place] [address] [place] [address] Lucia Crowder MD [address] [facility] [address] [place] [address] Anxiety with depression Social History Tobacco Use [...] encounter Miscellaneous Notes * Telephone Encounter - Rakel Beckham - 04/24/2021 1:19 PM EST Pt has a appt with you 12-13 at 445 your last of the day is this ok?? * Telephone Encounter - Lucia Crowder MD - 04/24/2021 10:42 AM EST I will refill x 1month but need a 30 min SSRI med + Asthma f/up with her this month please.It is OK to put her in a 15 min slot at the end of the day if I don't have a legitimate 30 min slot open :) * Telephone Encounter - Callie Bhakta LPN - 04/24/2021 9:41 AM EST Faxed refill request / pt no showed 03/24 follow up; cancelled follow up on 02/19 -no pending appts Message left on unidentified a/m asking for a call back documented in this encounter Plan of Treatment Not on file documented as of this encounter Visit Diagnoses Diagnosis Anxiety with depression documented in this encounter Care Teams Associate Entertainment Editor Relationship Specialty Start Date End Date Provider, MD Terri [address] [place] [phone] PCP - General Pediatrics 12/23/22 03/16/23 documented as of this encounter
--- OUTSIDE RECORDS SUMMARY | 2024-07-07 15:25 | XMS_ITS | Clinical Summary ---
Author Organization [employer] Address [address] [facility] 7[address] [place] [address] Care Team Providers Care Operations/Dispatch Name Role Phone Melissa Stauffer MD Primary Care Provider [phone] Allergies Active Allergy Reactions Criticality Noted Date Comments Pollen Extract Itching,Runny nose Low 06/19/2019 Spring and summer pollens Medications ibuprofen 400 MG tablet Take 400 mg by mouth every 8 (eight) hours if needed. 0 Active levalbuterol (Xopenex) 45 MCG/ACT inhaler Inhale 2 puffs every 4 hours by inhalation route. Active Spacer/Aero-Hol ding Chambers (AeroChamber Mini Chamber) device 1 Units every 4 (four) hours if needed. 3 Active ferrous gluconate (Fergon) 324 (37.5 Fe) MG tablet Take 1 tablet (324 mg) by mouth Once per day. 90 tablet 1 4 Active albuterol (Ventolin HFA) 108 (90 Base) MCG/ACT inhaler Inhale 2 puffs every 4 (four) hours if needed for shortness of breath. 18 g 5 4 Active cetirizine (ZyrTEC) 10 MG tablet Take 1 tablet (10 mg) by mouth at bedtime. 90 tablet 1 4 Active docusate sodium (Colace) 100 MG capsule Take 1 capsule (100 mg) by mouth if needed in the morning and at bedtime for constipation. 60 capsule 5 4 Active melatonin 3 MG tablet Take 1 tablet (3 mg) by mouth at bedtime. 90 tablet 1 4 Active norgestimate-et hinyl estradiol (Ortho-Cyclen) 0.25-35 MG-MCG tablet Take 1 tablet by mouth Once per day. 90 tablet 3 4 12/09/19 25 Active traZODone (Desyrel) 50 MG tablet Take 1 tablet (50 mg) by mouth at bedtime. 90 tablet 1 4 Active sertraline (Zoloft) 50 MG tablet Take 1 tablet (50 mg) by mouth Once per day. 90 tablet 1 4 Active Active Problems Problem Noted Date Diagnosed Date Cervical cancer screening 12/14/2023 Assessment & Plan (12/14/2023 11:17 AM EDT): 23 y.o. here for cervical cancer screening. Will continue monitoring following ASCCP guidelines. Encounter for medical examination to establish c are 12/02/2023 Assessment & Plan (12/02/2023 9:39 AM EDT): 23 y/o female no history of prior hospitalization, no ER visit on the past year. Last PCP visit over 1 year ([facility]) Pmhx:- Psh:- All:- Meds: control pills x 3 years Menarche was at 11yrs LMP 08/07/23 A0 Encounter for surveillance of contraceptive pill s 10/01/2023 Assessment & Plan (10/01/2023 10:45 AM EDT): Patient has been on norgestimate for over 1 year, has been taking it consistently, will renew medication Anxiety with depression 01/02/2020 Overview (12/07/2023): Symptoms first noted summer 2019, refractory to [...] tolerated increase to 20mg in 2 weeks. Last Assessment & Plan: Patient mood mildly improved Fluoxetine 20 mg, taken approximately 3/7 for the past 6 weeks. Denies SI, feels she could do better with daily consistency, we will plan to keep medication with her make-up bag and follow-up in 1 month. Assessment & Plan (02/18/2024 9:12 AM EDT): Will increase dose of sertraline to 50 mg, again discussed importance of therapy to assist with her mood symptoms, will f/up in 6-8 weeks but recommended RTC if worsening symptoms or no improvement. Assessment & Plan (12/31/2023 10:06 AM EDT): Patient declined counseling, will cont with current dose of sertralin and trazodone. Denies SI, f/up in 6 weeks. Assessment & Plan (12/09/2023 5:54 PM EDT): Discussed medications and refills as needed. Continue on current medications. Relevant Medications Sertraline (Zoloft) 25 MG tablet Trazodone (Desyrel) 50 MG tablet Mild intermittent allergic asthma without compli cation 06/19/2019 Overview (12/07/2023): 06/2019: Years of exercise induced and spring/summer pollen triggered chest tightness and cough endorsed with acuteVRS induced exacerbation, TO=238, RX albuterol and Flovent 110 q 4 hrs x 2 days with sx resolution. Cetirizine added for QD use 10/03/19: [facility] [facility] ER visit for tachycardia, mild chest discomfort [...] flow 250-259, improved post albuterol to 300. Last Assessment & Plan: Currently experiencing exercise induced symptoms outside only with high pollen counts- change Proair MDI to Ventolin per recent formulary change, advise nightly Cetirizine 10 mg and Flonase. Consider Montelukast or return to ICS if any nocturnal or unprovoked symptoms develop. Assessment & Plan (12/09/2023 5:56 PM EDT): Discussed medications and refills as needed. Relevant Medications Albuterol (Ventolin HFA) 108 (90 base) MCG/ACT inhaler Cetirizine (Zyrtec) 10 MG tablet Allergic rhinoconjunctivitis 06/19/2019 Overview (12/07/2023): Historical sx worse in spring and summer, NOT fall. Well control with Cetrizine and Flonase if taken regularly Last Assessment & Plan: Rhinitis symptoms on exam today consistent with previous history of spring and summer symptom exacerbations. Encouraged return to cetirizine 10 mg nightly with Flonase spray daily or as needed Dysmenorrhea treated with oral contraceptive 10/2018 Overview (12/07/2023): 11/2018 start of Norgestimate- 35 EE/ Sprintec with good effect, last full STI screen negative 05/2021 Last Assessment & Plan: Patient doing well on Sprintec now for the past 4 years, no changes desired, no symptoms of concern. Routine Gen-Probe ordered today. Assessment & Plan (12/09/2023 5:51 PM EDT): Discussed medication refills as needed. Continue on Ortho-Cyclen. Relevant Medication Norgestimate -ethinyl estradiol (Ortho-Cyclen) 0.25-35 MG-MCG tablet Acne vulgaris 02/10/2017 Overview (12/07/2023): Very sensitive to topicals, and Isotretinoin poorly tolerated 06/2019 Derm /DH-minimal active lesions on exam, suggested q 6 month facials with extractions Tretinoin 0.025 increased to 0.05, added in 2.5% BP QD 03/12/22: Derm/AV- Adapaline 0.1% Last Assessment & Plan: Face looking beautiful today, continue Adapalene 0.1% Encounters Date Type Department Care Team Description 07/07/2024 3:05 PM EST Immunization [facility] [address] [place] [phone] Bobbi Curry LPN Screening examination for pulmonary tuberculosis (Primary Dx); Encounter for immunization 07/07/2024 Travel 06/28/2024 3:00 PM EST Immunization [facility] [address] [place] [phone] Bobbi Curry LPN Encounter for immunization (Primary Dx) 06/28/2024 Travel 05/08/2024 9:40 AM EST Office Visit [facility] [address] [place] [phone] Karen Green NP Anxiety about health (Primary Dx); Cough in adult 05/03/2024 Telephone [facility] [address] [place] [phone] Melissa Stauffer MD Referral from Last 3 Months Immunizations Name Administration Dates Next Due DTaP, 5 pertussis antigens 02/11/2006,,02/20/2002,12/05,2001 HPV 9-Valent 02/06/2016,12/17/2014 HPV, Quadrivalent 02/01/2014 Hep A, ped/adol, 2 dose 12/17/2014,02/01/2014 Hep B, Adolescent or Pediatric 05/29/2002,2001,2001 Hib (PRP-T) 12/04/2002, 2,2001,10/04 IPV 02/11/2006, 3,2001,10/04 Influenza injectable quadriv alent IIV4 with preservative 02/06/2016 Influenza injectable quadriv alent preservative free 01/29/2021,02/28/2020,10/18/2019,07/20,02/10/2017,02/04/2015,02/01/2014 Influenza, IIV3, injectable 06/15/2008, 8 Influenza, Split (incl. bryant fied surface antigen) 04/19/2012,04/16/2011,01/27/2010 Influenza, seasonal, injecta ble, preservative free 07/07/2024 MMR 02/11/2006,09/12/2002 Meningococcal B, Recombinant 10/22/2021,10/22/19 21 Meningococcal MCV4P ACYW-135 07/20/2018,02/02/20 14 Novel Islxfybdh-[id number], all formulations 03/25/2009 PPD Test 09/18/2021,03/08/2019 Pneumococcal Conjugate PCV 20 06/28/2024 Pneumococcal Conjugate PCV 7 12/04/2002, 02/20/2002,2001,10/04 Pneumococcal Polysaccharide PPSV23 10/21/2020 Tdap 06/28/2024,02/01/2014 Varicella 02/03/2007,09/12/2002 Family History Medical History Relation Name Comments Diabetes Father Hypertension Father Stroke Father Asthma Mother Hypertension Mother Cancer Paternal Grandfather unknown Relation Name Status Comments Father Mother Paternal Grandfather Social History Tobacco Use Types Packs/Day Years Used Date Smoking Tobacco: Never Passive Smoke Exposure: Never Smokeless Tobacco: Never Tobacco Cessation:Counseling Given: Not Answered Alcohol Use Standard Drinks/Week Comments Never 0 [...] Orientation Straight 12/10/2023 9: 47 AM EDT Last Filed Vital Signs Vital Sign Reading Time Taken Comments Blood Pressure 117/72 05/08/2024 10:39 AM EST Pulse 70 05/08/2024 10:39 AM EST Temperature 36.7 ??C (98.1 ??F) 05/08/2024 10:[address] Respiratory Rate 16 05/08/2024 10:39 AM EST Oxygen Saturation 99% 05/08/2024 10:39 AM EST Inhaled Oxygen Concentration - - Weight 63 kg (139 lb) 05/08/2024 10:39 AM EST Height 164 cm (5' 4.57 ) 12/14/2023 11:01 AM EDT Body Mass Index 23.44 12/14/2023 11:01 AM EDT Plan of Treatment Health Maintenance Due Date Last Done Comments Family Planning (PISQ) 2016 COVID-19 Vaccine ( season) 2024 05/30/2021, 10/31/2020, 10/03/2020 Depression Monitoring (PHQ-9) 08/18/2024 02/18/2024, 02/18/2024 Alcohol/Substance Use Screening 12/08/2024 12/09/2023 SDOH Screening 12/08/2024 12/09/2023 Chlamydia and Gonorrhea Screening 12/13/2024 12/14/2023 Depression Screening 02/17/2025 02/18/2024, 02/18/20 Tobacco Screening 02/17/2025 02/18/2024 Pap Smear 12/13/2026 12/14/2023 DTaP/Tdap/Td Vaccines (8 - Td or Tdap) 06/28/2034 06/28/2024, 02/01/2014, 02/11/2006, Additional history exists Zoster Vaccines (1 of 2) 08/03/2051 RSV Patients and Patients Aged 60 years or older (1 - 1-dose 75+ series) 2076 Hepatitis B Vaccines Completed 05/29/2002, 2001, 2001 HIB Vaccines Completed 12/04/2002, 11/2001, 2001, Additional history exists IPV Vaccines Completed 02/11/2006, 05/17, 2001, Additional history exists Hepatitis A Vaccines Completed 12/17/2014, 02/02/20 14 HPV Vaccines Completed 02/06/2016, 07/2014, 02/01/2014 Meningococcal Vaccine Completed 07/20/2018, 014 HIV Screening Completed 12/14/2023 Hepatitis C Screening Completed 12/14/2023 Pneumococcal Vaccine: Pediatrics (0 to 5 Years) and At-Risk Patients (6 to 49) Years) Completed 06/28/2024, 10/21/2020, 12/04/2002, Additional history exists Influenza Vaccine Completed 07/07/2024, , 02/28/2020, Additional history exists RSV under 20 months Aged Out No longe r eligible based on patient's age to complete this topic Rotavirus Vaccines Aged Out No longer eligible based on patient's age to complete this topic Procedures Procedure Name Priority Date/Time Associated Diagnosis Comments ECG 12-LEAD Routine 05/08/2024 4:41 PM EST Anxiety about health POCT INFLUENZA B (ID NOW RAPID MOLECULAR) Routine 05/08/2024 11:10 AM EST Cough in adult POCT INFLUENZA A (ID NOW RAPID MOLECULAR) Routine 05/08/2024 11:10 AM EST Cough in adult POCT RAPID COVID ANTIGEN Routine 05/08/2024 10:43 AM EST Cough in adult HEPATITIS C AB W/REFL TO HCV RNA, QN, PCR Routine 12/14/2023 12:59 PM EDT Encounter for health-related screening HIV 1/2 ANTIGEN/ANTIBODY, FOURTH GENERATION W/RFL Routine 12/14/2023 12:59 PM EDT Encounter for health-related screening THINPREP IMAGING SYSTEM PAP Routine 12/14/2023 12:00 AM EDT Cervical cancer screening CHLAMYDIA/N. GONORRHOEAE RNA, TMA, UROGENITAL Routine 12/14/2023 12:00 AM EDT Encounter for health-related screening from Last 3 Months or Most Recently Relevant to Health Maintenance Results * ECG 12 lead (05/08/2024 4:41 PM EST) Narrative Karen Green NP - 05/08/2024 4:41 PM EST HR 76 bpm, axis, interval, morphology normal. Sinus rhythm ECG Karen Green NP ECG ORDERABLES Final Result * Influenza B (ID NOW Rapid Molecular) (05/08/2024 11:10 AM EST) Influenza B Negative Negative, Indeterminate [facility] Swab 05/08/2024 11:1 0 AM EST us Karen Green ELECTRICIAN RESEARCH POINT OF CARE TEST ENTER/EDIT O RDERABLES Final Result Performing Organization Address [facility]/ZIP Co de Phone Number [facility] [address] [place] [address] [phone] * Influenza A (ID NOW Rapid Molecular) (05/08/2024 11:10 AM EST) Influenza A Negative Negative, Indeterminate [facility] Swab 05/08/2024 11:1 0 AM EST Karen Green ELECTRICIAN RESEARCH POINT OF CARE TEST ENTER/EDIT O RDERABLES Final Result Performing Organization Address [facility] Co de Phone Number [facility] [address] [place] [address] [phone] * POCT Rapid COVID Ag (05/08/2024 10:43 AM EST) Rapid COVID Ag Negative Swab 05/08/2024 10:4 3 AM EST Karen Green ELECTRICIAN RESEARCH POINT OF CARE TEST ENTER/EDIT O RDERABLES Final Result * Hepatitis C Antibody with Reflex to HCV, RNA, Quantitative, Real-Time PCR (12/14/2023 12:59 PM EDT) Pathologist [facility] Hepatitis C Antibody Nonreactive Nonreactive [facility] Comment:Antibodies to HCV no t detected; does not exclude early acuteHCV infection. Blood Venous blood specimen / Unknown 12/14/2023 12:59 PM EDT 12/14/2023 12:59 PM EDT Melissa Stauffer MD LAB BLOOD ORDERABLES Final Re sult Performing Organization Address City/[facility]/ZIP Co de Phone Number [facility] [address] [place] [address] [phone] * HIV-1/2 Antigen and Antibodies, Fourth Generation, with Reflexes (12/14/2023 12:59 PM EDT) HIV AB/AG Nonreactive Nonreactive [facility] Comment:HIV-1 p24 Ag and/or HIV-1/HIV-2 Ab not detected.A test result that is nonreactive does not exclude thepossibility of exposure to or infection with HIV-1 and/orHIV-2. Nonreactive results in this assay for individualswith prior exposure to HIV-1 and/or HIV-2 may be due toantigen and antibody levels that are below the limit ofdetection of this assay.The Hoard HIV Ag/Ab Combo assay result andsupplemental assay results should be interpreted inconjunction with the patient's clinical presentation,history and other laboratory results. If the results areinconsistent with clinical evidence, additional testing issuggested to confirm the result. Blood Venous blood specimen / Unknown 12/14/2023 12:59 PM EDT 12/14/2023 12:59 PM EDT us Melissa Stauffer MD LAB BLOOD ORDERABLES Final Re sult [facility] [address] [place] [address] [phone] * Pap Smear (12/14/2023 12:00 AM EDT) SOURCE: SEE NOTE [facility] Comment:None given Report Status: [facility] Clinical Information: SEE NOTE [facility] Comment:None given LMP: SEE NOTE [facility] Comment:NONE GIVEN Prev. PAP: SEE NOTE [facility] Comment:NONE GIVEN Prev. BX: SEE NOTE [facility] Comment:NONE GIVEN Statement Of Adequacy: SEE NOTE [facility] Comment:Satisfactory for héctor luation.Endocervical/transformation zone componentpresent.Partially obscuring inflammation General Categorization: [facility] Interpretation/Result: SEE NOTE [facility] Comment:Cytology Results: Ne gative for intraepitheliallesion or malignancy. Cytology Comment SEE NOTE [facility] Comment:This Pap test has be en evaluated with computerassisted technology. Packer And Carry Out: SEE NOTE [facility] Comment:MSM, CT(ASCP)CT scre ening location: [address] [address] Review [employer]acker [employer] Car[employer] Out: [facility] Pathologist [facility] PAP Infection [facility] See Note SEE NOTE [facility] Comment:EXPLANATORY NOTE:The Pap is a screening test for cervical cancer. It isnot a diagnostic test and is subject to false negativeand false positive results. It is most reliable when asatisfactory sample, regularly obtained, is submittedwith relevant clinical findings and history, and whenthe Pap result is evaluated along with historic andcurrent clinical information.THIS TEST WAS PERFORMED AT:[employer] [address] [id number] MATAMOROS MD Pap Vial Vaginal structure / Unknown 12/14/2023 12/14/2023 Narrative [facility] - 12/17/2023 10:34 AM EDT SEE SCANNED RESULTS IN EMR us Melissa Stauffer MD LAB PATHOLOGY ORDERABLES Lena srinivasan Result [facility] [address] [place] [address] [phone] * Chlamydia/N. Gonorrhoeae RNA, TMA, Urogenitial (12/14/2023 12:00 AM EDT) CT PCR NOT DETECTED Not Detect. [facility] Comment:A not detected test result does not exclude the possibilityof infection because test results can be affected byimproper specimen collection, concurrent antibiotic therapy,or the number of organisms in the specimen which may bebelow the sensitivity of the test. As with many diagnostictests, results from the Xpert CT/NG assay should beinterpreted in conjunction with other laboratory andclinical data available to the clinician.Xpert CT/NG performance has not been evaluated in patientsless than 14 years of age. The assay should not be used forthe evaluationof suspected sexual abuse or for other medico-legalindications. Additional testing is recommended in anycircumstance when false positive or false negative resultscould lead to adverse medical, social or psychologicalconsequences. NG PCR NOT DETECTED Not Detect. [facility] Comment:A not detected test result does not exclude the possibilityof infection because test results can be affected byimproper specimen collection, concurrent antibiotic therapy,or the number of organisms in the specimen which may bebelow the sensitivity of the test. As with many diagnostictests, results from the Xpert CT/NG assay should beinterpreted in conjunction with other laboratory andclinical data available to the clinician.Xpert CT/NG performance has not been evaluated in patientsless than 14 years of age. The assay should not be used forthe evaluationof suspected sexual abuse or for other medico-legalindications. Additional testing is recommended in anycircumstance when false positive or false negative resultscould lead to adverse medical, social or psychologicalconsequences. Urine (Urine, Random) 12/14/2023 12/14/2023 Narrative [facility] - 12/14/2023 4:29 PM EDT Urine us Melissa Stauffer MD LAB MICROBIOLOGY - GENERAL OR DERABLES Final Result Performing Organization Address City/State/[facility] Co de Phone Number [facility] [address] [place] [phone] from Last 3 Months or Most Recently Relevant to Health Maintenance Insurance [facility] [place] [id number] [place] [id number] Care Teams Operations/Dispatch Relationship Specialty Start Date End Date Melissa Stauffer MD [address] [place] [phone] PCP - General Family Medicine 12/09/23
--- OUTSIDE RECORDS SUMMARY | 2024-07-07 15:25 | XMS_ITS | Encounter Summary ---
Author Organization [facility] Address [address] [place] [phone] Phone Care Team Providers Care Management Aide Name Role Phone Provider, Terri WALSH Primary Care Provider [phone] Encounter Details Date Type Department Care Team (Late st Contact Info) Description 12/31/2016 Conversion Encounter [facility] [address] [place] [address] Social History Tobacco Use Types Packs/Day Years Used Date Smoking Tobacco: Never Comments:Never smoker Comments Unknown Sex and Gender Information Value [...] on filedocumented in this encounter Care Teams Management Aide Relationship Specialty Start Date End Date Provider, MD Terri [address] [place] [phone] PCP - General Pediatrics 12/23/22 03/16/23 documented as of this encounter
--- OUTSIDE RECORDS SUMMARY | 2024-07-07 15:25 | XMS_ITS | Encounter Summary ---
Author Organization [employer] Address [address] [facility] 7t [place] [address] Care Team Providers Care Ore Washer Name Role Phone Saravanan Carroll MD Primary Care Prov ider Melissa Stauffer MD Primary Care Provider [phone] Reason for Visit * Reason Onset Date Comments Change PCP 09/28/2023 Encounter Details Date Type Department Care Team ([facility] st Contact Info) Description 09/28/[address] [facility] MED & PEDS [address] [place], [place] [phone] Saravanan Carroll MD [address] [place] [address] Change PCP Social History Tobacco Use Types Packs/Day Years Used Date Smoking Tobacco: Never Smokeless Tobacco: Never Depression Answer Date Recorded Patient Health Questionnaire-9 Score 14 09/14/2023 Patient Health Questionnaire-9 Score 14 09/14/2023 Last PHQ-9: Questionnaire Data Not on file 0 09/14/2023 Housing Stability Answer Date Recorded What is [...] Date Recorded Patient Health Questionnaire-2 Score 4 09/14/2023 Comments Unknown Sex and Gender Information Value Date Recorded Sex Assigned at Female 03/16/2022 10:38 AM EDT Legal Sex Female 10:38 AM EDT Gender Identity Female 03/16/2022 10:38 AM EDT Sexual Orientation Straight 12/10/2023 9: 47 AM EDT documented as of this encounter Miscellaneous Notes * Telephone Encounter - Donna Ochoa - 09/28/2023 10:24 AM EDT Tc from pt requesting to switch provider . States would prefer having a female pcp . Pt would like to get Stacy davis as a pcp. documented in this encounter Plan of Treatment Not on file documented as of this encounter Visit Diagnoses Not on filedocumented in this encounter Additional Health Concerns Assessment Noted Time PHQ-9 Depression Total Score: 14 024 1:43 PM EDT documented as of this encounter Care Teams Ore Washer Relationship Specialty Start Date End Date Saravanan Carroll MD [address] [place] [address] PCP - General Internal Medicine 09/10/23 12/08/23 Melissa Stauffer MD [address] [place] [address] PCP - General Family Medicine 12/09/23 documented as of this encounter
--- OUTSIDE RECORDS SUMMARY | 2024-07-07 15:25 | XMS_ITS | Encounter Summary ---
Author Organization [facility] Address [address] [place] [address] Phone Care Team Providers Care Regenerator Operator Name Role Phone Provider, Terri WALSH Primary Care Provider [phone] Reason for Visit * Reason Onset Date Comments Med Refill 06/19/2020 Encounter Details Date Type Department Care Team (Late st Contact Info) Description 06/19/2020 Refill [facility] [address] [place] [address] Lucia Crowder MD [address] [facility] [address] [place] [address] Mild intermittent allergic asthma with acute exacerbation Social History Tobacco Use Types Packs/Day Years [...] as of this encounter Visit Diagnoses Diagnosis Mild intermittent allergic asthma with acute exacerbation documented in this encounter Care Teams Regenerator Operator Relationship Specialty Start Date End Date Provider, MD Terri [address] [place] [phone] PCP - General Pediatrics 12/23/22 03/16/23 documented as of this encounter
--- OUTSIDE RECORDS SUMMARY | 2024-07-07 15:25 | XMS_ITS | Encounter Summary ---
Author Organization [facility] Address [address] [place] [address] Phone Care Team Providers Care Shingle Packer Name Role Phone Provider, Terri WALSH Primary Care Provider [phone] Reason for Visit * Reason Comments Med Refill Encounter Details Date Type Department Care Team ([facility] st Contact Info) Description 01/29/2021 Refill [facility] [address] [place] [address] Lucia Crowder MD [address] [facility] [address] [place] [address] Mild intermittent allergic asthma without complication Social History Tobacco Use Types Packs/Day Years [...] encounter Miscellaneous Notes * Telephone Encounter - Jasmina Shoemaker MD - 01/31/2021 9:58 AM EDT Rx reviewed and e-prescribed to pharmacy. * Telephone Encounter - Callie Bhakta LPN - 01/30/2021 9:33 AM EDT Faxed refill request / please resend documented in this encounter Plan of Treatment Not on file documented as of this encounter Visit Diagnoses Diagnosis Mild intermittent allergic asthma without complication documented in this encounter Care Teams Shingle Packer Relationship Specialty Start Date End Date Provider, MD Terri [address] [place] [phone] PCP - General Pediatrics 12/23/22 03/16/23 documented as of this encounter
--- OUTSIDE RECORDS SUMMARY | 2024-07-07 15:25 | XMS_ITS | Encounter Summary ---
Author Organization [employer] Address [address] [facility] 7t [place] [address] Care Team Providers Care Procedures Rn Name Role Phone Saravanan Carroll MD Primary Care Prov ider Melissa Stauffer MD Primary Care Provider [phone] Reason for Visit * Reason Onset Date Comments New Patient 03/09/2023 Encounter Details Date Type Department Care Team (Late st Contact Info) Description 03/09/2023 Telephone [facility] MEDICINE [address] [place] [address] Patrick Ram MD [address] [place], [place] [phone] New Patient Social History Tobacco Use Types Packs/Day Years Used Date Smoking Tobacco: Never Assessed Comments Unknown Sex and Gender Information Value Date Recorded Sex Assigned at Female 03/16/2022 10:38 AM EDT Legal Sex Female 10:38 AM EDT Gender Identity Female 03/16/2022 10:38 AM EDT Sexual Orientation Straight 12/10/2023 9: 47 AM EDT documented as of this encounter Miscellaneous Notes * Telephone Encounter - Murali Johnson - 03/09/2023 4:16 PM EDT Tc to pt, to start the process of becoming a patient with facility and also to informed that we do not take insurance to please switch to [employer] C[employer], no answer/left Vm to call back at [phone]. documented in this encounter Plan of Treatment Not on file documented as of this encounter Visit Diagnoses Not on filedocumented in this encounter Care Teams Procedures Rn Relationship Specialty Start Date End Date Saravanan Carroll MD [address] [place] [address] PCP - General Internal Medicine 09/10/23 12/08/23 Melissa Stauffer MD [address] [place] [address] PCP - General Family Medicine 12/09/23 documented as of this encounter
[2024-07-10 15:53] LABS: TS Negative Control Passed; TS Panel A 0; TS Panel B 0; TS Positive Control Passed; TSpotTB Negative (Negative)
== END 2024-07-07 15:23 | disposition home or self-care (01) ==
LOC: HO.HHCL 15:22
PROVIDERS: Visit Provider Family Medicine
DX: Z11.1 Encounter for screening for respiratory tuberculosis (principal)
CPT/HCPCS: 36415; 86481

== ENCOUNTER 2025-01-26 06:11 | Outpatient (REF) | payer MEDICAID, SELFPAY ==
--- OUTSIDE RECORDS SUMMARY | 2025-01-26 06:15 | XMS_ITS | Encounter Summary ---
Author Organization [facility] Address [address] [place] [address] Phone Care Team Providers Care Steam Boiler Fireman Name Role Phone Provider, Terri WALSH Primary Care Provider [phone] Reason for Visit * Reason Comments Med Refill Encounter Details Date Type Department Care Team ([facility] st Contact Info) Description 04/24/2022 Refill [facility] [address] [place] [address] Lucia Crowder MD [address] [facility] [address] [place] [address] Allergic rhinoconjunctivitis Social History Tobacco Use Types [...] rhinoconjunctivitis documented in this encounter Care Teams Steam Boiler Fireman Relationship Specialty Start Date End Date Provider, MD Terri [address] [place] [phone] PCP - General Pediatrics 12/23/22 03/16/23 documented as of this encounter
--- OUTSIDE RECORDS SUMMARY | 2025-01-26 06:15 | XMS_ITS | Encounter Summary ---
Author Organization [employer] Address [address] [place] [address] 7t [place] [address] Care Team Providers Care Fabric Worker Supervisor Name Role Phone Saravanan Carroll MD Primary Care Prov ider Melissa Stauffer MD Primary Care Provider [phone] Reason for Visit * Reason Onset Date Comments New Patient 03/09/2023 Encounter Details Date Type Department Care Team ([facility] st Contact Info) Description 03/09/2023 Telephone [facility] MEDICINE 230 [place] [address] Patrick Ram MD [address] [place], [place] [phone] New Patient Social History Tobacco Use Types [...] not take insurance to please switch to [employer] C[employer], no answer/left Vm to call back at [phone]. documented in this encounter Plan of Treatment Not on file documented as of this encounter Visit Diagnoses Not on filedocumented in this encounter Care Teams Fabric Worker Supervisor Relationship Specialty Start Date End Date Saravanan Carroll MD [address] [place] [address] PCP - General Internal Medicine 09/10/23 12/08/23 Melissa Stauffer MD [address] [place] [address] PCP - General Family Medicine 12/09/23 documented as of this encounter
--- OUTSIDE RECORDS SUMMARY | 2025-01-26 06:15 | XMS_ITS | Encounter Summary ---
Author Organization [facility] Address [address] [place] [address] Phone Care Team Providers Care Hot Mill Supervisor Name Role Phone Provider, Terri WALSH Primary Care Provider [phone] Reason for Visit * Reason Comments Med Refill Encounter Details Date Type Department Care Team ([facility] st Contact Info) Description 07/14/2020 Refill [facility] [place] [address] [place] [address] Lucia Crowder MD [address] [facility] [address] [place] [address] Anxiety with depression Social History Tobacco Use [...] depression documented in this encounter Care Teams Hot Mill Supervisor Relationship Specialty Start Date End Date Provider, MD Terri [address] [place] [phone] PCP - General Pediatrics 12/23/22 03/16/23 documented as of this encounter
--- OUTSIDE RECORDS SUMMARY | 2025-01-26 06:15 | XMS_ITS | Encounter Summary ---
Author Organization [facility] Address [address] [place] [address] Phone Care Team Providers Care Escape Wheel Tooth Cutter Name Role Phone Provider, Terri WALSH Primary Care Provider [phone] Reason for Visit * Reason Comments Med Refill Encounter Details Date Type Department Care Team (Late st Contact Info) Description 10/13/2018 Refill [facility] [address] [place] [address] Sue Schneider MD [address] [place] [address] Acne vulgaris Social History Tobacco Use Types [...] acne documented in this encounter Care Teams Escape Wheel Tooth Cutter Relationship Specialty Start Date End Date Provider, MD Terri [address] [place] [phone] PCP - General Pediatrics 12/23/22 03/16/23 documented as of this encounter
--- OUTSIDE RECORDS SUMMARY | 2025-01-26 06:15 | XMS_ITS | Encounter Summary ---
Author Organization [facility] Address [address] [place] [address] Phone Care Team Providers Care Strategic Account Manager Name Role Phone Provider, Terri WALSH Primary Care Provider [phone] Reason for Visit * Reason Comments Med Refill Encounter Details Date Type Department Care Team ([facility] st Contact Info) Description 01/29/2021 Refill [facility] [place] [address] [place] [address] Lucia Crowder MD [address] [facility] [address] [place] [address] Mild intermittent allergic asthma without complication Social [...] complication documented in this encounter Care Teams Strategic Account Manager Relationship Specialty Start Date End Date Provider, MD Terri [address] [place] [phone] PCP - General Pediatrics 12/23/22 03/16/23 documented as of this encounter
--- OUTSIDE RECORDS SUMMARY | 2025-01-26 06:15 | XMS_ITS | Encounter Summary ---
Author Organization [facility] Address [address] [place] [address] Phone Care Team Providers Care Truss Builder Name Role Phone Provider, Terri WALSH Primary Care Provider [phone] Reason for Visit * Reason Onset Date Comments Med Refill 12/28/2020 Encounter Details Date Type Department Care Team (Late st Contact Info) Description 12/28/2020 Refill [facility] [address] [place] [address] Lucia Crowder MD [address] [facility] [address] [place] [address] Acne vulgaris Social History Tobacco Use Types [...] acne documented in this encounter Care Teams Truss Builder Relationship Specialty Start Date End Date Provider, MD Terri [address] [place] [phone] PCP - General Pediatrics 12/23/22 03/16/23 documented as of this encounter
--- OUTSIDE RECORDS SUMMARY | 2025-01-26 06:15 | XMS_ITS | Clinical Summary ---
Author Organization [facility] Address [address] [place] [address] Phone Care Team Providers Care Gliding Pilot Instructor Name Role Phone Unavailable Primary Care Provider [...] tolerated increase to 20mg in 2 weeks. Assessment & Plan (10/22/2022 6:43 PM EDT): [...] ex-boyfriend. Pt requesting additional support services with [facility] team, last seen 02/2020-05/2020 by PC. Assessment & Plan (10/23/2021 5:58 PM EDT): Off Sertaline 50 by accident and with return of mixed mood dysregulation, but without self harm, MCLEOD or SI. Resume Sertraline at 25 mg x 3-5 days then to 50 mg daily- no refill needed yet per pt.Plan f/up by [facility] in 2 weeks and office f/up in [...] tray filled on Wednesday and placed on to help with medication consistency, Begin Sertraline [...] will explore in greater detail at her [facility] next week. Assessment & Plan [...] addition of montelukast as needed. Will contact [facility] office to determine if patient [...] and cough endorsed with acuteVRS induced exacerbation, YP=719, RX albuterol and Flovent 110 q 4 hrs x 2 days with sx resolution. Cetirizine added for QD use 10/03/19: [facility] ER visit for tachycardia, mild chest discomfort [...] for more reliable contraception. Continue to encourage Rosalia toward consistent condom use for her own [...] (02/28/2020): offered support, validation. In counseling with [facility] Immunizations Immunization Administration Dates Next Due COVID-19 Pfizer, monovalent, 12+ years 2 DTaP 5 02/11/2006, 3,02/20/2002,12/05,2001 H1N1 03/25/2009 HPV Vaccine 9 Valent 02/06/2016,12/17/2014 HPV, Quadrivalent 02/01/2014 Hep A, ped/adol 12/17/2014,02/01/2014 Hep B, ped/adol 05/29/2002,2001,2001 Hib (PRP-T) 12/04/2002, 2,2001,10/04 IPV 02/11/2006, 3,2001,10/04 Influenza Split 04/19/2012,04/16/2011,01/27/2010 Influenza, injectable, quadrivalent 02/06/2016 Influenza, injectable, quadr ivalent, preservative free 01/29/2021,02/28/2020,10/18/2019,07/20,02/10/2017,02/04/2015,02/01/2014 Influenza, injectable, trivalent 06/15/2008,11/10/2007 MMR 02/11/2006,09/12/2002 Meningococcal B Trumenba 10/22/2021,10/21/2020 Meningococcal Conj (Menactra) MCV4P 07/20/2018,0 02/01/2014 PPD Test 09/18/2021,03/08/2019 Pneumococcal Conjugate 12/04/2002,2001,2001,10/04 Pneumococcal Polysaccharide 10/21/2020 Tdap 02/01/2014 Varicella 02/03/2007,09/12/2002 Family History Medical History Relation Name Comments Anxiety disorder Father Azael Anne Diabetes Father Azael Anne Anxiety disorder Mother Yasmine Colon Asthma Mother Yasmine Colon Migraines Mother Yasmine Colon Thyroid disease Mother Yasmine Colon Relation Name Status Comments Father Azael Anne Alive Father: Diabe michael mellitus Mother Yasmine Colon Alive Mother: Alive and well Other No family histo ry of *Heart Disease, Family history of *Sudden /ME under 55, No family history of *Dental [...] 85 10/19/2022 1:21 PM EDT Temperature 37 C (98.6 F) 12/07/2022 11:32 AM EDT Respiratory Rate 26 01/01/2020 1:34 PM EDT Oxygen Saturation - - Inhaled Oxygen Concentration - - Weight 60.4 kg (133 lb 3.2 oz) 12/07/2022 11:32 AM EDT Height 161 cm (5' 3.39 ) 10/19/2022 1:21 PM EDT Body Mass Index 23.31 10/19/2022 1:21 PM EDT Plan of Treatment Health Maintenance Due Date Last Done Comments DTaP,Tdap,and Td Vaccines (7 - Td or Tdap) 02/02/2024 02/01/2014, 02/11/2006, 03/20/2003, Additional history exists Influenza Vaccines (#1) 2024 01/30/20, 02/28/2020, 10/18/2019, Additional history exists COVID-19 Vaccine (2024-06 6 season) 2025 05/30/2021, 10/31/2020, 10/03/2020 Hepatitis B Vaccines Completed 05/29/2002, 2001, 2001 [...] Completed 10/22/2021, 10/21/2020 Procedures * Due to [place] TripShake law, this organization might not be sharing sensitive test results. Procedure Name Priority Date/Time Associated Diagnosis Comments CHLAMYDIA AND GONORRHEA, AMPLIFIED Routine 12/07/2022 12:05 PM EDT Screening examination for bacterial and spirochetal disease from Last 3 Months or Most Recently Relevant to Health Maintenance Results * Due to [place] TripShake law, this organization might not be sharing sensitive test results. * Chlamydia and Gonorrhea, Amplified (12/07/2022 12:05 PM EDT) Chlamydia Trachomatis, DNA Probe NEGATIVE (NEG) [facility] Comment: No Chlamydia Trachomatis RNA detected in this patient's sample (REFERENCE RANGE/NORMAL VALUE: NOT DETECTED) Note: This test uses physician general practice- mediated amplification method to detect rRNA from C. Trachomatis URINE GC AMP PROBE NEGATIVE (NEG) [facility] Comment: No Neisseria Gonorrhoeae RNA detected in this patient's sample (REFERENCE RANGE/NORMAL VALUE: NOT DETECTED) NOTE: This test uses physician general practice-mediated amplification method to detect rRNA from N.Gonorrhoeae. [...] without risk of sexual abuse. Consult the [facility] if needed. Contact phone number . Therapeutic failure or success cannot be determined with the Aptima Combo2 assay since nucleic acid may persist following appropriate antimicrobial therapy. The Centers for Disease Control and Prevention (CDC) recommends confirmatory retesting using culture or a different nucleic acid amplification test when positive results occur, if indicated. Testing performed or reported by [facility], a Service of [facility], [address] [place] [address] Flako Frank MD, Insurance [facility]# [id number] Urine (Urine) 12/07/2022 12: 05 PM EDT 12/07/2022 1:58 PM EDT us Sue Schneider MD LAB MICROBIOLOGY - GENERAL ORDERABLES Final Result [facility] from Last 3 Months or Most Recently Relevant to Health Maintenance Insurance * Guarantor: YASMINE MALLOY Account Type Relation to Patient Date of Phone Billing Address Personal/Family Mother 1970 [address] [place] [address] [facility] NON PCC [facility] [employer] * Guarantor: YASMINE MALLOY Account Type Relation to Patient Date of Phone Billing Address Behavioral Health Mother 1970 [address] [place] [id number]
--- OUTSIDE RECORDS SUMMARY | 2025-01-26 06:15 | XMS_ITS | Encounter Summary ---
Author Organization [employer] Address [address] [facility] 7 [place] [address] Care Team Providers Care Client Experience Specialist Name Role Phone Saravanan Carroll MD Primary Care Prov ider Melissa Stauffer MD Primary Care Provider [phone] Reason for Visit * Reason Onset Date Comments Change PCP 09/28/2023 Encounter Details Date Type Department Care Team ([facility] st Contact Info) Description 09/28/2023 Telephone [facility] MED & PEDS [address] [place], [place] [phone] Saravanan Carroll MD [address] [place] [address] Change PCP Social History Tobacco Use Types [...] documented as of this encounter Care Teams Client Experience Specialist Relationship Specialty Start Date End Date Saravanan Carroll MD [address] [place] [address] PCP - General Internal Medicine 09/10/23 12/08/23 Melissa Stauffer MD [address] [place] [address] PCP - General Family Medicine 12/09/23 documented as of this encounter
--- OUTSIDE RECORDS SUMMARY | 2025-01-26 06:15 | XMS_ITS | Encounter Summary ---
Author Organization [facility] Address [address] [place] [address] Phone Care Team Providers Care Preschool Special Education Teacher Name Role Phone Provider, Terri WALSH Primary Care Provider [phone] Encounter Details Date Type Department Care Team (Late st Contact Info) Description 02/07/2015 Documentation [facility] [address] [place], [place] [phone] Family Medicine, Physician [address] [place], [place] [phone] Social History Tobacco Use Types Packs/Day Years [...] on filedocumented in this encounter Care Teams Preschool Special Education Teacher Relationship Specialty Start Date End Date Provider, MD Terri [address] [place] [phone] PCP - General Pediatrics 12/23/22 03/16/23 documented as of this encounter
--- OUTSIDE RECORDS SUMMARY | 2025-01-26 06:15 | XMS_ITS | Encounter Summary ---
Author Organization [facility] Address [address] [place] [address] Phone Care Team Providers Care Java Technical Architect Name Role Phone Provider, Terri WALSH Primary Care Provider [phone] Reason for Visit * Reason Comments Med Refill Encounter Details Date Type Department Care Team ([facility] st Contact Info) Description 07/13/2021 Refill [facility] [address] [place] [address] Lucia Crowder MD [address] [facility] 2 [place] [address] Anxiety with depression; Allergic rhinoconjunctivitis Social History [...] Telephone Encounter - Callie Bhakta LPN - 07/16/2021 8:37 AM EST I [...] rhinoconjunctivitis documented in this encounter Care Teams Java Technical Architect Relationship Specialty Start Date End Date Provider, MD Terri [address] [place] [phone] PCP - General Pediatrics 12/23/22 03/16/23 documented as of this encounter
--- OUTSIDE RECORDS SUMMARY | 2025-01-26 06:15 | XMS_ITS | Encounter Summary ---
Author Organization [facility] Address [address] [place] [address] Phone Care Team Providers Care Project Associate Name Role Phone Provider, Terri WALSH Primary Care Provider [phone] Reason for Visit * Reason Comments Med Refill Encounter Details Date Type Department Care Team ([facility] st Contact Info) Description 05/11/2022 Refill [facility] [place] [address] [place] [address] Lucia Crowder MD [address] [facility] [address] [place] [address] Screening for iron deficiency anemia; Anxiety with [...] depression documented in this encounter Care Teams Project Associate Relationship Specialty Start Date End Date Provider, MD Terri [address] [place] [address] PCP - General Pediatrics 12/23/22 03/16/23 documented as of this encounter
--- OUTSIDE RECORDS SUMMARY | 2025-01-26 06:15 | XMS_ITS | Clinical Summary ---
Author Organization [employer] Address [address] [facility] [address] [place] [address] Care Team Providers Care Damaged Freight Inspector Name Role Phone Melissa Stauffer MD Primary Care Provider [phone] Allergies Active Allergy Reactions Criticality Noted Date [...] per day. 90 tablet 1 4 Active cetirizine (ZyrTEC) 10 MG tablet [...] at bedtime. 90 tablet 1 4 Active traZODone (Desyrel) 50 MG tablet Take 1 tablet (50 mg) by mouth at bedtime. 90 tablet 1 4 Active sertraline (Zoloft) 50 MG tablet Take 1 tablet (50 mg) by mouth Once per day. 90 tablet 1 4 Active norgestimate-et hinyl estradiol (Ortho-Cyclen) 0.25-35 MG-MCG tablet Take 1 tablet by mouth Once per day. 90 tablet 3 5 11/02/19 26 Active albuterol (Ventolin HFA) 108 (90 Base) MCG/ACT inhaler Inhale 2 puffs every 4 (four) hours if needed for shortness of breath. 18 g 5 5 Active Ascorbic Acid (vitamin C) 250 MG tablet Take 1 tablet (250 mg) by mouth Once per day. 30 tablet 11 5 12/22/19 26 Active zinc gluconate 50 MG tablet Take 1 tablet (50 mg) by mouth Once per day. 30 tablet 11 5 12/22/19 26 Active Active Problems Problem Noted Date Diagnosed Date Cervical cancer screening 12/14/2023 Assessment & Plan (12/14/2023 11:17 AM EDT): 23 y.o. here for cervical cancer screening. Will continue monitoring following ASCCP guidelines. Annual physical exam 12/02/2023 Assessment & Plan (01/09/2025 9:32 AM EDT): 24 y.o. female here for annual physical examination Reviewed BMI and BP with patient. Nutritional recommendations: Recommended to decrease soda and sugary beverage consumption. Recommended at least 20 g per meal of protein to assist with satiety. Exercise recommendations: Recommended at least 150 min/week of moderate intensity exercise. screen done and reviewed Care Gaps reviewed IZ reviewed and discussed w/ patient Updated/reviewed PMH, Surghx, Family Hx & Social Hx Assessment & Plan (12/02/2023 9:39 AM EDT): 23 y/o female no history of prior hospitalization, no ER visit on the past year. Last PCP visit over 1 year ([facility]) Pmhx:- Psh:- All:- Meds: control pills [...] and cough endorsed with acuteVRS induced exacerbation, NU=407, RX albuterol and Flovent 110 q 4 hrs x 2 days with sx resolution. Cetirizine added for QD use 10/03/19: [facility] ER visit for tachycardia, [...] Encounters Date Type Department Care Team Description 12/21/2024 2:00 PM EDT Office Visit [facility] [address] [place] [address] Melissa Stauffer MD Annual physical exam (Primary Dx); Other fatigue 12/21/2024 Travel 12/20/2024 Travel 12/19/2024 Telephone [facility] [address] [place] [address] Melissa Stauffer MD 12/13/2024 Patient Outreach [facility] [address] [place] [address] Melissa Stauffer MD Pre-visit Planning (Pre visit planning LVM ) 11/27/2024 Refill [facility] [address] [place] [address] Melissa Stauffer MD 10/30/2024 Refill [facility] [address] [place] [address] Melissa Stauffer MD from Last 3 Months Immunizations Immunization Administration Dates Next Due DTaP, 5 pertussis [...] 21 Meningococcal MCV4P [id number]-135 07/20/2018,02/02/20 14 Novel [id number], all formulations 03/25/2009 PPD Test 09/18/2021,03/08/2019 Pneumococcal [...] Answer Date Recorded Patient Health Questionnaire-9 Score 10 12/21/2024 Patient Health Questionnaire-9 Score 10 12/21/2024 Last PHQ-9: Questionnaire Data Not on file 0 12/21/2024 Housing Stability Answer Date Recorded What is your housing situation today? I have jevon gonsalez 12/21/[address] you li ve. Do you have problems with any of the following? None of the above 12/21/2024 Food Insecurity Answer Date Recorded Within the past 12 months, y ou worried that your food would run out before you got money to buy more: Never True 12/21/2024 Within the past 12 months,th e food you bought just didn't last and you didn't have enough money to get more: Never True 11/2024 Transportation Answer Date Recorded In the past 12 months, has l ack of transportation kept you from medical appts, meetings, work or from getting things needed for daily living? No 12/21/2024 Utilities Answer Date Recorded In the past 12 months, has t he electric, gas, oil or water company threatened to shut off services in your home? No 12/21/2024 Depression Answer Date Recorded Patient Health Questionnaire-2 Score 1 12/21/2024 Internet Access Answer Date Recorded Internet Access Q1 Yes 12/21/2024 Internet Access Q2 Not on file 12/21/2024 Comments Unknown Sex and Gender Information Value Date Recorded Sex Assigned at Female 03/16/2022 10:38 AM EDT Legal Sex Female 10:38 AM EDT Gender Identity Female 03/16/2022 10:38 AM EDT Sexual Orientation Straight 12/10/2023 9: 47 AM EDT Last Filed Vital Signs Vital Sign Reading Time Taken Comments Blood Pressure 123/72 12/21/2024 1:40 PM EDT Pulse 78 12/21/2024 1:40 PM EDT Temperature 36.7 C (98 F) 12/21/2024 1:40 PM EDT Respiratory Rate 20 12/21/2024 1:40 PM EDT Oxygen Saturation 98% 12/21/2024 1:40 PM EDT Inhaled Oxygen Concentration - - Weight 61.4 kg (135 lb 6.4 oz) 12/21/2024 1:40 P M EDT Height 162 cm (5' 3.78 ) 12/21/2024 1:40 PM EDT Body Mass Index 23.4 12/21/2024 1:40 PM EDT Plan of Treatment Health Maintenance Due Date Last Done Comments Family Planning (PISQ) 2016 Chlamydia and Gonorrhea Screening 12/13/2024 12/14/2023, 12/07/2022 COVID-19 Vaccine ( season) 2025 05/30/2021, 10/31/2020, 10/03/2020 Influenza Vaccine (#1) 2025 , 01/29/2021, 02/28/2020, Additional history exists Depression Monitoring 06/23/2025 12/21/2024, 025 Alcohol/Substance Use Screening 12/21/2025 12/21/2024 Disability Screening 12/21/2025 12/21/2024 SDOH Screening 12/21/2025 12/21/2024 Tobacco Screening 12/21/2025 12/21/2024 Pap Smear 12/13/2026 12/14/2023 DTaP/Tdap/Td Vaccines (8 [...] 07/2014, 02/01/2014 Meningococcal Vaccine Completed 07/20/2018, 014 Meningococcal B Vaccine Completed 10/22/2021, 10/21 HIV Screening Completed 12/14/2023 Hepatitis C Screening Completed 12/14/2023 Pneumococcal Vaccine: Pediatrics (0 to 5 Years) and At-Risk Patients (6 to 49) Years Completed 06/28/2024, 10/21/2020, 12/04/2002, Additional history exists RSV under 20 months Aged Out No longe r eligible based on patient's age to complete this topic Rotavirus Vaccines Aged Out No longer eligible based on patient's age to complete this topic Procedures Procedure Name Priority Date/Time Associated Diagnosis Comments HEPATITIS C AB W/REFL TO HCV RNA, [...] Recently Relevant to Health Maintenance Results * Hepatitis C Antibody with Reflex to HCV, RNA, Quantitative, Real-Time PCR (12/14/2023 12:59 PM EDT) Hepatitis C Antibody Nonreactive Nonreactive [facility] Comment:Antibodies to HCV no t detected; does not exclude early acuteHCV infection. Blood Venous blood specimen / Unknown 12/14/2023 12:59 PM EDT 12/14/2023 12:59 PM EDT Melissa Stauffer MD LAB BLOOD ORDERABLES Final Re sult Performing Organization Address [facility]/ZIP Co de Phone Number [facility] [address] [place] [address] [phone] * HIV-1/2 Antigen and Antibodies, Fourth Generation, with Reflexes (12/14/2023 12:59 PM EDT) HIV AB/AG Nonreactive Nonreactive [facility] Comment:HIV-1 p24 Ag and/or HIV-1/HIV-2 Ab not detected.A test result that is nonreactive does not exclude thepossibility of exposure to or infection with HIV-1 and/orHIV-2. Nonreactive results in this assay for individualswith prior exposure to HIV-1 and/or HIV-2 may be due toantigen and antibody levels that are below the limit ofdetection of this assay.[employer] HIV Ag/Ab Combo assay result andsupplemental assay results should be interpreted inconjunction with the patient's clinical presentation,history and other laboratory results. If the results areinconsistent with clinical evidence, additional testing issuggested to confirm the result. Blood Venous blood specimen / Unknown 12/14/2023 12:59 PM EDT 12/14/2023 12:59 PM EDT us Melissa Stauffer MD LAB BLOOD ORDERABLES Final Re sult Performing Organization Address [facility]/ZIP Co de Phone Number [facility] [address] [place] [address] [phone] * Pap Smear (12/14/2023 12:00 AM EDT) SOURCE: SEE NOTE [facility] Comment:None given Report Status: [facility] Clinical Information: SEE NOTE [facility] Comment:None given LMP: SEE NOTE [facility] Comment:NONE GIVEN Prev. PAP: SEE NOTE [facility] Comment:NONE GIVEN Prev. BX: SEE NOTE [facility] Comment:NONE GIVEN Statement Of Adequacy: SEE NOTE [facility] Comment:Satisfactory for héctor luation.Endocervical/transformation zone componentpresent.Partially obscuring inflammation General Categorization: [facility] Interpretation/Result: SEE NOTE [facility] Comment:Cytology Results: Ne gative for intraepitheliallesion or malignancy. Cytology Comment SEE NOTE [facility] Comment:This Pap test has be en evaluated with computerassisted technology. Food And Beverage Outlets Manager: SEE NOTE [facility] Comment:MSM, CT(ASCP)CT scre ening location: [place] [address] Review Food And Beverage Outlets Manager: [facility] Pathologist [facility] PAP Infection [facility] See Note SEE NOTE [facility] Comment:EXPLANATORY NOTE:The Pap is a screening test for cervical cancer. It isnot a diagnostic test and is subject to false negativeand false positive results. It is most reliable when asatisfactory sample, regularly obtained, is submittedwith relevant clinical findings and history, and whenthe Pap result is evaluated along with historic andcurrent clinical information.THIS TEST WAS PERFORMED AT:[employer] [address] [id number] MATAMOROS MD Pap Vial Vaginal structure / Unknown 12/14/2023 12/14/2023 Narrative [facility] - 12/17/2023 10:34 AM EDT SEE SCANNED RESULTS IN EMR us Melissa Stauffer MD LAB PATHOLOGY ORDERABLES Lena l Result [facility] [address] [place] [phone] * Chlamydia/N. Gonorrhoeae RNA, TMA, Urogenitial (12/14/2023 12:00 AM EDT) CT PCR NOT DETECTED Not Detect. [facility] Comment:A not detected test result [...] psychologicalconsequences. NG PCR NOT DETECTED Not Detect. [facility] Comment:A not detected test result [...] psychologicalconsequences. Urine (Urine, Random) 12/14/2023 12/14/2023 Narrative [facility] - 12/14/2023 4:29 PM EDT Urine us Melissa Stauffer MD LAB MICROBIOLOGY - GENERAL OR DERABLES Final Result [facility] [address] [place] [phone] from Last 3 Months or Most Recently Relevant to Health Maintenance Insurance [facility] [address] [facility] [id number] Care Teams Damaged Freight Inspector Relationship Specialty Start Date End Date Melissa Stauffer MD [address] [place] [phone] PCP - General Family Medicine 12/09/23
--- OUTSIDE RECORDS SUMMARY | 2025-01-26 06:15 | XMS_ITS | Encounter Summary ---
Author Organization [facility] Address [address] [place] [address] Phone Care Team Providers Care Commercial Art Instructor Name Role Phone Provider, Terri WALSH Primary Care Provider [phone] Reason for Visit * Reason Onset Date Comments Med Refill 06/19/2020 Encounter Details Date Type Department Care Team (Late st Contact Info) Description 06/19/2020 Refill [facility] [address] [place] [address] Lucia Crowder MD [address] [facility] [address] [place] [address] Mild intermittent allergic asthma with acute exacerbation [...] exacerbation documented in this encounter Care Teams Commercial Art Instructor Relationship Specialty Start Date End Date Provider, MD Terri [address] [place] [phone] PCP - General Pediatrics 12/23/22 03/16/23 documented as of this encounter
--- OUTSIDE RECORDS SUMMARY | 2025-01-26 06:15 | XMS_ITS | Encounter Summary ---
Author Organization [facility] Address [address] [place] [address] Phone Care Team Providers Care Publishing Manager Name Role Phone Provider, Terri WALSH Primary Care Provider Reason for Visit * Reason Comments Med Refill Encounter Details Date Type Department Care Team ([facility] st Contact Info) Description 08/08/2020 Refill [facility] [place] [address] [place] [address] Lucia Crowder MD [address] [facility] [address] [place] [address] Anxiety with depression Social History Tobacco Use [...] from her :) * Telephone Encounter - Leopoldo Cruz - 08/08/2020 2:12 PM EDT I [...] for a f/up. I will ask the front maker to reach out and get her booked. * Telephone Encounter - Feli Askew LPN - 08/08/2020 8:41 AM EDT Refill request for Sertraline. Last PE 10/18/19. Last FU 07/10/20/AGATHA documented in this encounter Plan of Treatment Not on file documented as of this encounter Visit Diagnoses Diagnosis Anxiety with depression documented in this encounter Care Teams Publishing Manager Relationship Specialty Start Date End Date Provider, MD Terri [address] [place] [phone] PCP - General Pediatrics 12/23/22 03/16/23 documented as of this encounter
--- OUTSIDE RECORDS SUMMARY | 2025-01-26 06:15 | XMS_ITS | Encounter Summary ---
Author Organization [facility] Address [address] [place] [address] Phone Care Team Providers Care Floor Molder Name Role Phone Provider, Terri WALSH Primary Care Provider [phone] Encounter Details Date Type Department Care Team (Late st Contact Info) Description 12/31/2016 Conversion Encounter [facility] [place] [address] [place] [address] Social History Tobacco Use Types Packs/Day Years [...] on filedocumented in this encounter Care Teams Floor Molder Relationship Specialty Start Date End Date Provider, MD Terri [address] [place] [phone] PCP - General Pediatrics 12/23/22 03/16/23 documented as of this encounter
--- OUTSIDE RECORDS SUMMARY | 2025-01-26 06:15 | XMS_ITS | Encounter Summary ---
Author Organization [facility] Address [address] [place] [address] Phone Care Team Providers Care Carpentry Instructor Name Role Phone Provider, Terri WALSH Primary Care Provider [phone] Encounter Details Date Type Department Care Team (Late st Contact Info) Description 04/23/2011 Documentation [facility] [address] [place], [place] [phone] Family Medicine, Physician [address] [place], [place] [phone] Social History Tobacco Use Types Packs/Day Years [...] on filedocumented in this encounter Care Teams Carpentry Instructor Relationship Specialty Start Date End Date Provider, MD Terri [address] [place] [phone] PCP - General Pediatrics 12/23/22 03/16/23 documented as of this encounter
--- OUTSIDE RECORDS SUMMARY | 2025-01-26 06:15 | XMS_ITS | Encounter Summary ---
Author Organization [facility] Address [address] [place] [address] Phone Care Team Providers Care Amusement Ride Inspector Name Role Phone Provider, Terri WALSH Primary Care Provider [phone] Reason for Visit * Reason Comments Med Refill Encounter Details Date Type Department Care Team (Late st Contact Info) Description 04/24/2021 Refill [facility] [place] [address] [place] [address] Lucia Crowder MD [address] [facility] [address] [place] [address] Anxiety with depression Social History Tobacco Use [...] open :) * Telephone Encounter - Callie Bhakat LPN - 04/24/2021 9:41 AM EST Faxed refill request / pt no showed 03/24 follow up; cancelled follow up on 02/19 -no pending appts Message left on unidentified a/m asking for a call back documented in this encounter Plan of Treatment Not on file documented as of this encounter Visit Diagnoses Diagnosis Anxiety with depression documented in this encounter Care Teams Amusement Ride Inspector Relationship Specialty Start Date End Date Provider, MD Terri [address] [place] [phone] PCP - General Pediatrics 12/23/22 03/16/23 documented as of this encounter
[2025-01-26 06:35] LABS: MANUAL DIFF FLAG NO
[2025-01-26 07:38] LABS: Hematocrit 39.0 % (37.0-47.0); Hemoglobin 12.6 g/dl (12.0-16.0); Imm Gran Abs Auto 0.02 X10*3/uL (0.00-0.03); Imm Gran Pct Auto 0.3 % (0.0-0.4); Lymphocytes Absolute Auto 2.1 X10*3/uL (1.2-4.9); Mean Corpuscular HGB Conc 32.3 g/dl (31.0-35.0); Mean Corpuscular Hemoglobin 28.7 pg (27.0-33.0); Mean Corpuscular Volume 88.8 fL (80.0-98.0); NRBC Abs Auto 0.000 X10*3/uL (0.0-0.012); NRBC Pct Auto 0.0 /100WBC (0.0-0.2); Platelet Count 277 X10*3/uL (160-400); Red Blood Count 4.39 X10*6/uL (4.20-5.50); White Blood Count 6.5 X10*3/uL (4.8-10.8)
[2025-01-26 08:15] LABS: Alanine Aminotransferase 19 U/L (0-31); Albumin Level 4.5 g/dL (3.5-5.0); Alkaline Phosphatase 51 U/L (39-117); Anion Gap 11 (12-20); Aspartate Amino Transferase 20 U/L (5-31); Blood Urea Nitrogen 11 mg/dL (9-16); Calcium 8.9 mg/dL (8.4-10.2); Carbon Dioxide 25 mmol/L (22-29); Chloride 107 mmol/L (96-108); Estimated Glomerular Filt Rate > 60; Iron 62 mcg/dL (30-160); Percent Iron Saturation 17 % (15-50); Potassium 3.7 mmol/L (3.3-5.1); Sodium 139 mmol/L (135-145); Total Iron Binding Capacity 368 mcg/dL (228-428); Total Protein 7.2 g/dL (6.5-8.0); Unsaturated Iron Binding 306 ug/dL
[2025-01-26 08:35] LABS: Ferritin 23 ng/mL (10-122)
[2025-01-26 09:09] LABS: CT PCR Urine NOT DETECTED (Not Detect.); NG PCR Urine NOT DETECTED (Not Detect.)
== END 2025-01-26 06:12 | disposition home or self-care (01) ==
LOC: HO.LAB 06:11
PROVIDERS: PCP Family Medicine; Visit Provider Family Medicine
DX: Z00.00 Encounter for general adult medical examination without abnormal findings (principal); Z11.3 Encounter for screening for infections with a predominantly sexual mode of transmission; Z11.8 Encounter for screening for other infectious and parasitic diseases; R53.83 Other fatigue
CPT/HCPCS: 80053; 82306; 82728; 83540; 84443; 85025; 87491; 87591

== ENCOUNTER 2025-01-30 17:54 | Emergency (ER) | payer MEDICAID, SELFPAY ==
--- NOTE | ~2025-01-30 | US_ITS ---
CLINICAL HISTORY: PAIN US pelvis transabdominal and transvaginal Comparison: None provided Findings: Transabdominal scanning performed for overall anatomy. Transvaginal scanning performed for additional detail. Anteverted uterus is 7.2 cm length. Normal myometrium. Endometrium 7 mm thickness. Right ovary 4.2 x 2.1 x 2.6 cm. Left ovary 3.4 x 2 x 3.2 cm. Normal color Doppler of both ovaries. No free fluid. IMPRESSION: 1. Normal pelvic ultrasound. Likely physiologic free fluid noted. This document has been electronically signed by: Nick Walters MD on 01/31/2025 00:01:34
--- NOTE | ~2025-01-30 | CT_ITS ---
CLINICAL HISTORY: abdominal pain CT abdomen and pelvis with contrast Comparison: CT - CT ABDOMEN PELVIS W IV CON - 01/31/25 00:40 EDT Findings: The lung bases are clear. Unremarkable gallbladder and solid organs. No urolithiasis. No bowel obstruction, pneumoperitoneum, or pneumatosis. There is a complex hypodense lesion in the right ovary measuring approximately 2.6 x 1.6 by 2.1 cm The appendix is draped over the enlarged right ovary that appears to be normal. No acute fracture. IMPRESSION: There is a complex hypodense lesion in the right ovary measuring approximately 2.6 x 1.6 by 2.1 cm. In a patient of this age this likely represents a hemorrhagic cyst. In retrospect there is a slightly hypoechoic complex structure in the right ovary on sonography corresponding to this lesion. Its ultrasound characteristics do not suggest a tubo-ovarian abscess. This document has been electronically signed by: Nick Walters MD on 01/31/2025 02:13:14
[2025-01-30 18:20] VITALS: BP 125/73; PULSE 94; RESP 14; TEMP 36.3; O2SAT 99; BMI 23.7
--- NOTE | 2025-01-30 18:25 | ED_ITS ---
[facility] - Abdominal Pain General Chief Complaint: Abdominal Pain Stated Complaint: Lower abdominal pain/sent from Time Seen by Provider: 01/30/25 21:00 Source: patient Mode of arrival: ambulatory Limitations: no limitations History of Present Illness ED Provider: Dr. Saldivar [facility] narrative: 24 yo Female presented hospital today for mid suprapubic tenderness this has been going on since 03:00 which woke her up from sleep. She describes as a stabbing in nature. She does endorse some nausea associated with this. She is currently on control at this time. No urinary symptoms no vaginal bleeding or no vaginal discharge. Related Data Home Medications ?Medication ?Instructions ?Recorded ?Confirmed budesonide 180 mcg/actuation 1 inh inhalation BID 07/15 11/05 breath activated powder inhaler (Pulmicort Flexhaler) Previous Rx's ?Medication ?Instructions ?Recorded docusate sodium 100 mg capsule 100 mg PO DAILY PRN con stipation 06/04/23 (Colace) #30 caps Allergies Allergy/AdvReac Type Severity Reaction Status Date / Time No Known Allergies Allergy Verified 01/30/25 18:23 Review of Systems Review of Systems Pertinent review of systems as mentioned in [facility]. All other system otherwise negative. [facility] Past Medical History [facility] Narrative: Medical history as mentioned in [facility] Medical History Asthma Social History Social History Unable to assess alcohol history related to: Unknown Patient Tobacco Use Status: Never used Tobacco Gender identity: Female Physical Exam ED Exam Exam: General: Pleasant, no distress, interacting appropriately Head: Normacephalic, atraumatic ENT: oral mucosa moist, neck supple, no tracheal deviation Cardiovascular: regular rate, regular rhythm, no murmurs, rubbing, gallops Respiratory: CTAB, no wheeze, rales, rhonchi Gastrointestinal: Soft, non distended, admits suprapubic tenderness on palpation, no guarding Neurological: Awake and alert, no facial droop noted Skin: Warm and dry Psychiatric: Appropriate mood and thoughts Vital Signs: Vital Signs - 24 hr 01/30/25 18:20 01/30/25 20:58 01/31/25 02:37 Temperature 97.3 F 98.6 F 98.1 F Pulse Rate 94 86 86 Respiratory Rate 14 16 16 Blood Pressure 125/73 113/58 L 102/57 L Pulse Oximetry 99 99 99 Oxygen Delivery Method Room Air Room Air Room Air BMI result Body Mass Index 23.7 Course Course Course Narrative: This is an RME: Additional HPI, ROS, PE not included below will be deferred to primary provider. RME assessment and note performed by: Nereyda Montano PA-C This is a 24-year-old female who presents emergency department with concerns of lower abdominal pain since 3 o'clock this morning. This woke her up from sleep. Stabbing in nature. Endorsing nausea, last menstrual period December 26, states she has been compliant with control. No urinary symptoms or vaginal symptoms. No constipation or diarrhea. Abdomen is soft with tenderness palpation in the lower abdomen, more pronounced in the right lower. Plan: Labs, UA, further ER evaluation needed. Medical Decision Making Medical Decision Making [facility] Narrative: This is a 24-year-old female presented hospital today for evaluation of mid suprapubic tenderness that woke her up in the middle night Review patient's lab work she does have some leukocytosis of 11.4, patient's is unremarkable, patient UA did not show any signs of UTI. Patient's pelvic ultrasound did not show any signs of ovarian torsion. CT abdomen and pelvis was obtained. She does have signs of a right hemorrhagic ovarian cyst. Radiologist does not think this is tubular ovarian abscess. We will plan to discharge patient home with referral to OBGYN for follow up. Patient agrees and understands this plan. Differential Diagnosis Differential Diagnoses: The differential diagnosis associated with the presentation includes Hemorrhagic cyst, ovarian torsion, tubo-ovarian abscess Lab Data [facility] Lab Attestation statement: I reviewed the patient's lab results. 01/30/25 20:23 01/30/25 20:23 Labs: Lab Results 01/30/25 01/30/25 Range/Units 20:23 22:45 WBC 11.4 H (4.8-10.8) X10*3/uL RBC 4.15 L (4.20-5.50) X10*6/uL Hgb 12.1 (12.0-16.0) g/dl Hct 36.0 L (37.0-47.0) % MCV 86.7 (80.0-98.0) fL MCH 29.2 (27.0-33.0) pg MCHC 33.6 (31.0-35.0) g/dl RDW 12.2 (11.0-16.0) % Plt Count 284 (160-400) X10*3/uL MPV 9.4 (9.4-12.3) fL Immature Gran % (Auto) 0.2 (0.0-0.4) % Neut % (Auto) 68.3 (45-73) % Lymph % (Auto) 24.1 (20-40) % [place] % (Auto) 6.6 (2-11) % Eos % (Auto) 0.3 (0-4) % Baso % (Auto) 0.5 (0-2) % Lymph # (Auto) 2.8 (1.2-4.9) X10*3/uL [place] # (Auto) 0.8 (0.1-1.2) X10*3/uL Eos # (Auto) 0.0 (0.0-0.4) X10*3/uL Baso # (Auto) 0.1 (0.0-0.2) X10*3/uL Abs Immat Gran (auto) 0.02 (0.00-0.03) X10*3/uL Absolute Neuts (auto) 7.8 (2.0-8.3) x10*3/uL Absolute Nucleated RBC 0.000 (0.0-0.012) X10*3/uL Nucleated RBC % (auto) 0.0 (0.0-0.2) /100WBC Sodium 140 (135-145) mmol/L Potassium 4.1 (3.3-5.1) mmol/L Chloride 106 (96-108) mmol/L Carbon Dioxide 26 (22-29) mmol/L Anion Gap 12 (12-20) BUN 13 (9-16) mg/dL Creatinine 0.64 (0.5-1.4) mg/dL Estim Creat Clear Calc 118.0 Estimated GFR > 60 Random Glucose 94 (60-115) mg/dL Calcium 9.2 (8.4-10.2) mg/dL Total Bilirubin 0.3 (0.0-1.0) mg/dL Direct Bilirubin 0.1 (0.0-0.5) mg/dL AST 20 (5-31) U/L ALT 22 (0-31) U/L Alkaline Phosphatase 60 (39-117) U/L Total Protein 7.5 (6.5-8.0) g/dL Albumin 4.7 (3.5-5.0) g/dL Lipase 28 (8-78) U/L Beta HCG, Quant < 2 mIU/mL Urine Color Yellow Urine Appearance Clear Urine pH 7.0 (5.0-9.0) Ur Specific [place] <= 1.005 (1.005-1.025) Urine Protein Negative (Neg-Trace) mg/dL Urine Glucose (UA) Negative (Negative) mg/dL Urine Ketones Negative (Negative) mg/dL Urine Blood Negative (Negative) Urine Nitrite Negative (Negative) Ur Leukocyte Esterase Trace H (Negative) Urine RBC 0-2 (0-2) /HPF Urine WBC 0-5 (0-5) /HPF Ur Squamous Epith Cells 0-2 (0-2) /HPF Urine Bacteria None Seen (None Seen) Hyaline Casts 0-2 (0-2) /LPF Independent Interpretation I performed an independent interpretation of an: Ultrasound and CT Scan Radiology Impression Discussion of test interpretation with radiology: I have reviewed the radiologist's reading. Medications Administered Discontinued Medications Generic Name Dose Route Start Last Admin Trade Name Freq PRN Reason Stop Dose Admin Acetaminophen 975 mg 01/30/25 21:59 01/30/25 22:02 Acetaminophen 325 Mg Tablet PO 01/30/25 22:00 975 mg ONCE ONE Administration Ibuprofen 400 mg 01/30/25 21:59 01/30/25 22:02 Ibuprofen 400 Mg Tablet PO 01/30/25 22:00 400 mg ONCE ONE Administration Iohexol 85 ml 01/31/25 01:13 01/31/25 01:14 Iohexol 350 Mg/Ml 100 Ml Infus..Btl IV 01/31/25 01:14 85 ml ONCE ONE Administration Discharge Plan Discharge Clinical Impression: Pelvic pain, Hemorrhagic cyst of ovary Patient Disposition: Home, Self-Care Instructions: Heat Pack Application (ED), Pelvic Pain (ED) Prescriptions: No Action docusate sodium [Colace] 100 mg capsule 100 mg PO DAILY PRN (Reason: constipation) Qty: 30 0RF Pulmicort Flexhaler 180 mcg/actuation aerosol powdr breath activated 1 inh inhalation BID Referrals: [facility] [employer] [Outside] Clinical Impression: Hemorrhagic cyst of ovary Stand Alone Forms: Work/School Release Print Language: Ethiopian
--- OUTSIDE RECORDS SUMMARY | 2025-01-30 18:40 | XMS_ITS | Encounter Summary ---
Author Organization [employer] Address [address] [place] [address] Care Team Providers Care Nutrition Director Name Role Phone Melissa Stauffer MD Primary Care Provider [phone] Encounter Details Date Type Department Care Team ([facility] st Contact Info) Description 01/30/2025 6:40 PM EDT Office Visit [facility] [address] [place] [address] Bilateral lower abdominal pain (Primary Dx) Social History Tobacco Use Types [...] AM EDT documented as of this encounter Last Filed Vital Signs Vital Sign Reading Time Taken Comments Blood Pressure 116/75 01/30/2025 5:30 PM EDT Pulse 85 01/30/2025 5:30 PM EDT Temperature 37.2 C (98.9 F) 01/30/2025 5:30 PM EDT Respiratory Rate 16 01/30/2025 5:30 PM EDT Oxygen Saturation 100% 01/30/2025 5:30 PM EDT Inhaled Oxygen Concentration - - Weight 62.7 kg (138 lb 3.2 oz) 01/30/2025 5:30 P M EDT Height - - Body Mass Index 23.89 12/21/2024 1:40 PM EDT documented in this encounter Plan of Treatment Not on file documented as of this encounter Visit Diagnoses Diagnosis Bilateral lower abdominal pain- Primary documented in this encounter Additional Health Concerns Assessment Noted Time PHQ-9 Depression Total Score: 10 025 1:42 PM EDT documented as of this encounter Care Teams Nutrition Director Relationship Specialty Start Date End Date Melissa Stauffer MD [address] [place] [address] PCP - General Family Medicine 12/09/23 documented as of this encounter
[2025-01-30 20:29] LABS: MANUAL DIFF FLAG NO
[2025-01-30 20:30] LABS: Hematocrit 36.0 % (37.0-47.0); Hemoglobin 12.1 g/dl (12.0-16.0); Imm Gran Abs Auto 0.02 X10*3/uL (0.00-0.03); Imm Gran Pct Auto 0.2 % (0.0-0.4); Lymphocytes Absolute Auto 2.8 X10*3/uL (1.2-4.9); Mean Corpuscular HGB Conc 33.6 g/dl (31.0-35.0); Mean Corpuscular Hemoglobin 29.2 pg (27.0-33.0); Mean Corpuscular Volume 86.7 fL (80.0-98.0); NRBC Abs Auto 0.000 X10*3/uL (0.0-0.012); NRBC Pct Auto 0.0 /100WBC (0.0-0.2); Platelet Count 284 X10*3/uL (160-400); Red Blood Count 4.15 X10*6/uL (4.20-5.50); White Blood Count 11.4 X10*3/uL (4.8-10.8)
--- OUTSIDE RECORDS SUMMARY | 2025-01-30 20:39 | XMS_ITS | Encounter Summary ---
Author Organization [employer] Address [address] [place] [address] Care Team Providers Care Service Member Name Role Phone Saravanan Carroll MD Primary Care Prov ider Melissa Stauffer MD Primary Care Provider [phone] Reason for Visit * Reason Onset Date Comments Change PCP 09/28/2023 Encounter Details Date Type Department Care Team ([facility] st Contact Info) Description 09/28/2023 Telephone [facility] [address], [place] [phone] Saravanan Carroll MD [address] [place] [address] Change PCP Social History Tobacco Use Types [...] documented as of this encounter Care Teams Service Member Relationship Specialty Start Date End Date Saravanan Carroll MD [address] [place] [address] PCP - General Internal Medicine 09/10/23 12/08/23 Melissa Stauffer MD [address] [place] [address] PCP - General Family Medicine 12/09/23 documented as of this encounter
--- OUTSIDE RECORDS SUMMARY | 2025-01-30 20:39 | XMS_ITS | Encounter Summary ---
Author Organization [employer] Address [address] [facility] [place] [address] Care Team Providers Care Customer Experience Leader Name Role Phone Melissa Stauffer MD Primary Care Provider [phone] Encounter Details Date Type Department Care Team ([facility] Contact Info) Description 01/30/2025 Telephone [facility] [address] [place] [address] Melissa Stauffer MD [address] [place] [address] Social History Tobacco Use Types Packs/Day Years [...] Miscellaneous Notes * Telephone Encounter - Rakel Vang RN - 01/30/2025 5:07 PM EDT Assessment: Patient presents to [facility] c/o lower abdominal pain above pubic bone Symptoms have been present for presented early am apx 3:30 pain was so intense woke patient up. Symptoms are constant. Symptoms worsen with with movement. Symptoms are relieved by rest. Patient is taking (treatment/meds) no meds. Recent ED visit or hospitalization: No. VS as follows (if applicable): Temp 98.9 orally HR 85 regular rate and rhythm Resp 16 none BP 116/75 left Arm; Device: Automatic Cuff Size: regular O2 sat 100 % on room air Pain level: 8, Location: abdomen Wgt 138.2 lb Plan of care: Report to Dr Alonso Provider evaluation: Yes Patient will wait in triage to be seen Rakel Vang RN documented in this encounter Plan of Treatment Not on file documented as of this encounter Visit Diagnoses Not on filedocumented in this encounter Additional Health Concerns Assessment Noted Time PHQ-9 Depression Total Score: 10 025 1:42 PM EDT documented as of this encounter Care Teams Customer Experience Leader Relationship Specialty Start Date End Date Melissa Stauffer MD [address] [place] [address] PCP - General Family Medicine 12/09/23 documented as of this encounter
--- OUTSIDE RECORDS SUMMARY | 2025-01-30 20:39 | XMS_ITS | Encounter Summary ---
Author Organization [employer] Address [address] [facility] [place] [address] Care Team Providers Care Photography Intern Name Role Phone Melissa Stauffer MD Primary Care Provider [phone] Encounter Details Date Type Department Care Team (Latest Contact Info) Description 01/30/2025 Travel Social History Tobacco Use Types Packs/Day [...] documented as of this encounter Care Teams Photography Intern Relationship Specialty Start Date End Date Melissa Stauffer MD [address] [place] [id number] PCP - General Family Medicine 12/09/23 documented as of this encounter
--- OUTSIDE RECORDS SUMMARY | 2025-01-30 20:39 | XMS_ITS | Clinical Summary ---
Author Organization [employer] Address [address] [place] [address] [address] [place] [address] Care Team Providers Care Child'S Nurse Name Role Phone Melissa Stauffer MD Primary Care Provider [phone] Allergies Active Allergy Reactions Criticality Noted Date [...] year. Last PCP visit over 1 year ([facility]) Pmhx:- Psh:- All:- Meds: control pills [...] and cough endorsed with acuteVRS induced exacerbation, GM=353, RX albuterol and Flovent 110 q 4 hrs x 2 days with sx resolution. Cetirizine added for QD use 10/03/19: [facility] ER visit for tachycardia, mild chest [...] Encounters Date Type Department Care Team Description 01/30/2025 6:40 PM EDT Office Visit [facility] [address] [place] [address] Bilateral lower abdominal pain (Primary Dx) 01/30/2025 Travel 01/30/2025 Telephone [facility] [address] [place] [address] Melissa Stauffer MD 12/21/2024 2:00 PM EDT Office Visit [facility] [address] [place] [address] Melissa Stauffer MD Annual physical exam (Primary Dx); Other fatigue 12/21/2024 Travel 12/20/2024 Travel 12/19/2024 Telephone [facility] [address] [place] [address] Melissa Stauffer MD 12/13/2024 Patient Outreach [facility] [address] [place] [address] Melissa Stauffer MD Pre-visit Planning (Pre visit planning LVM ) 11/27/2024 Refill [facility] [address] [place] [address] Melissa Stauffer MD 10/30/2024 Refill [facility] [address] [place] [address] Melissa Stauffer MD from Last 3 Months [...] 21 Meningococcal MCV4P ACYW-135 07/20/2018,02/02/20 14 Novel Zetnuasir-[id number], all formulations 03/25/2009 PPD Test 09/18/2021,03/08/2019 Pneumococcal [...] oz) 01/30/2025 5:30 P M EDT Height 162 cm (5' 3.78 ) 12/21/2024 1:40 PM EDT Body Mass Index 23.89 12/21/2024 1:40 PM EDT Plan of Treatment [...] Procedure Name Priority Date/Time Associated Diagnosis Comments VITAMIN D,25-OH,TOTAL,IA Routine 01/26/2025 6:33 AM EDT Other fatigue TSH W/REFLEX TO FT4 Routine 01/26/2025 6 :33 AM EDT Other fatigue COMPREHENSIVE METABOLIC PANEL Routine 01/26/2025 6:33 AM EDT Other fatigue FERRITIN Routine 01/26/2025 6:33 AM EDT Other fatigue IRON AND TOTAL IRON BINDING CAPACITY Routine 01/26/2025 6:33 AM EDT Other fatigue CBC WITH AUTO DIFFERENTIAL Routine 01/26/2025 6:33 AM EDT Other fatigue CHLAMYDIA/TRICHOMONAS/ NEISSERIA GONORRHOEAE, PCR, URINE Routine 01/26/2025 6:28 AM EDT Annual physical exam HEPATITIS C AB W/REFL TO HCV RNA, [...] Recently Relevant to Health Maintenance Results * (ABNORMAL) Vitamin D, 25-Hydroxy, Total, Immunoassay (01/26/2025 6:33 AM EDT) Pathologist [facility] Vitamin D 25-OH Total 19.4(L) >30 ng/mL [facility] Comment: Health Based Reference Values*< 20 ng/mL Zfatdsipt40-60 ng/mL Insufficient> 30 ng/mL Sufficient*Kayla TURK. N Engl J Med. 2007;357:266-280There is no well-established upper level of normal vitamin Dlevels. Some laboratories use 50 ng/mL as an upper limit ofnormal. However, toxicity is patient-dependent and may occurat any level. Careful correlation with the patient'spresentation is necessary and, if there is concern forvitamin D toxicity, treatment should be consideredirrespective of the serum level.Care must be taken in interpreting Vitamin D results fromdifferent laboratories and methodologies. Published datademonstrated that results from patients undergoinghemodialysis may show a negative bias when tested withvarious automated 25-OH vitamin D assays when compared toLC-MS/MS.When testing samples from patients whose predominant form ofVitamin D is Vitamin D2, such as patients receiving VitaminD2 supplementation, results that are subtherapeutic shouldbe confirmed with another method such as LC-MS/MS. Blood Venous blood specimen / Unknown 01/26/2025 6:33 AM EDT 01/26/2025 6:33 AM EDT Melissa Stauffer MD LAB BLOOD ORDERABLES Final Re sult Performing Organization Address [facility] de Phone Number [facility] [address] [place] [phone] * TSH W/Reflex to FT4 (01/26/2025 6:33 AM EDT) TSH reflex Free T4 2.29 0.32 - 4.0 uIU/mL [facility] Blood Venous blood specimen / Unknown 01/26/2025 6:33 AM EDT 01/26/2025 6:33 AM EDT Melissa Stauffer MD LAB BLOOD ORDERABLES Final Re sult Performing Organization Address [facility] de Phone Number [facility] [address] [place] [phone] * CBC auto differential (01/26/2025 6:33 AM EDT) White Blood Count 6.5 4.8 - 10.8 X10*3/uL [facility] Red Blood Count 4.39 4.20 - 5.50 X10*6/uL [facility] Hemoglobin 12.6 12.0 - 16.0 g/dl [facility] Hematocrit 39.0 37.0 - 47.0 % [facility] Mean Corpuscular Volume 88.8 80.0 - 98.0 fL [facility] Mean Corpuscular Hemoglobin 28.7 27.0 - 33.0 pg [facility] Mean Corpuscular HGB Conc 32.3 31.0 - 35.0 g/dl [facility] Red Cell Distribution Width 12.2 11.0 - 16.0 % [facility] Platelet Count 277 160 - 400 X10*3/uL [facility] Mean Platelet Volume 9.9 9.4 - 12.3 fL [facility] Neutrophils Percent Auto 60.9 45 - 73 % [facility] Imm Gran Pct Auto 0.3 0.0 - 0.4 % [facility] Lymphocytes Percent Auto 31.4 20 - 40 % [facility] Monocytes Percent Auto 5.7 2 - 11 % [facility] Eosinophils Percent Auto 1.1 0 - 4 % [facility] Basophils Percent Auto 0.6 0 - 2 % [facility] NRBC Pct Auto 0.0 0.0 - 0.2 /100WBC [facility] Neutrophils Absolute Auto 4.0 2.0 - 8.3 x10*3/uL [facility] Imm Gran Abs Auto 0.02 0.00 - 0.03 X10*3/uL [facility] Lymphocytes Absolute Auto 2.1 1.2 - 4.9 X10*3/uL [facility] Monocytes Absolute Auto 0.4 0.1 - 1.2 X10*3/uL [facility] Eosinophils Absolute Auto 0.1 0.0 - 0.4 X10*3/uL [facility] Basophils Absolute Auto 0.0 0.0 - 0.2 X10*3/uL [facility] NRBC Abs Auto 0.000 0.0 - 0.012 X10*3/uL [facility] Blood Venous blood specimen / Unknown 01/26/2025 6:33 AM EDT 01/26/2025 6:33 AM EDT us Melissa Stauffer MD LAB BLOOD ORDERABLES Final Re sult Performing Organization Address City/[facility] de Phone Number [facility] [address] [place] [phone] * Iron And Total Iron Binding Capacity (01/26/2025 6:33 AM EDT) Iron 62 30 - 160 mcg/dL [facility] Total Iron Binding Capacity 368 228 - 428 mcg/dL [facility] Percent Iron Saturation 17 15 - 50 % [facility] Unsaturated Iron Binding 306 ug/dL [facility] Blood Venous blood specimen / Unknown 01/26/2025 6:33 AM EDT 01/26/2025 6:33 AM EDT Melissa Stauffer MD LAB BLOOD ORDERABLES Final Re sult Performing Organization Address [facility] de Phone Number [facility] [address] [place] [phone] * Ferritin (01/26/2025 6:33 AM EDT) Pathologist [facility] Ferritin 23 10 - 122 ng/mL [facility] Blood Venous blood specimen / Unknown 01/26/2025 6:33 AM EDT 01/26/2025 6:33 AM EDT Melissa Stauffer MD LAB BLOOD ORDERABLES Final Re sult Performing Organization Address [facility] de Phone Number [facility] [address] [place] [phone] * (ABNORMAL) Comprehensive Metabolic Panel (01/26/2025 6:33 AM EDT) Pathologist [facility] Sodium 139 135 - 145 mmol/L [facility] Potassium 3.7 3.3 - 5.1 mmol/L [facility] Chloride 107 96 - 108 mmol/L [facility] Carbon Dioxide 25 22 - 29 mmol/L [facility] Anion Gap 11(L) 12 - 20 [facility] Urea Nitrogen (BUN) 11 9 - 16 mg/dL [facility] Creatinine, Serum 0.63 0.5 - 1.4 mg/dL [facility] Estimated Glomerular Filt Rate >60 [facility] Comment:Chronic Kidney Disea se: Estimated GFR < 60 mL/min/1.01k6Wonbld Kidney Disease: Estimated GFR < 15 mL/min/1.73m2 Glucose 88 60 - 115 mg/dL [facility] Calcium 8.9 8.4 - 10.2 mg/dL [facility] Bilirubin, Total 0.4 0.0 - 1.0 mg/dL [facility] Aspartate Amino Transferase 20 5 - 31 U/L [facility] Alanine Aminotransferase 19 0 - 31 U/L [facility] Total Protein 7.2 6.5 - 8.0 g/dL [facility] Albumin Level 4.5 3.5 - 5.0 g/dL [facility] Alkaline Phosphatase 51 39 - 117 U/L [facility] Blood Venous blood specimen / Unknown 01/26/2025 6:33 AM EDT 01/26/2025 6:33 AM EDT us Melissa Stauffer MD LAB BLOOD ORDERABLES Final Re sult [facility] [address] [place] [phone] * Chlamydia/Trichomonas/Neisseria gonorrhoeae, PCR, Urine (01/26/2025 6:28 AM EDT) CT PCR, Urine NOT DETECTED Not Detect. [facility] Comment:A not detected test result does not exclude the possibilityof infection because test results can be affected byimproper specimen collection, concurrent antibiotic therapy,or the number of organisms in the specimen which may bebelow the sensitivity of the test. As with many diagnostictests, results from the Xpert CT/NG assay should beinterpreted in conjunction with other laboratory andclinical data available to the clinician.The Xpert CT/NG assay should not be used for the evaluationof suspected sexual abuse or for other medico-legalindications. Additional testing is recommended in anycircumstance when false positive or false negative resultscould lead to adverse medical, social or psychologicalconsequences. NG PCR, Urine NOT DETECTED Not Detect. [facility] Comment:A not detected test result does not exclude the possibilityof infection because test results can be affected byimproper specimen collection, concurrent antibiotic therapy,or the number of organisms in the specimen which may bebelow the sensitivity of the test. As with many diagnostictests, results from the Xpert CT/NG assay should beinterpreted in conjunction with other laboratory andclinical data available to the clinician.The Xpert CT/NG assay should not be used for the evaluationof suspected sexual abuse or for other medico-legalindications. Additional testing is recommended in anycircumstance when false positive or false negative resultscould lead to adverse medical, social or psychologicalconsequences. Urine (Urine, Random) 01/26/2025 6:28 AM EDT 01/26/2025 7:35 AM EDT Melissa Stauffer MD LAB URINE ORDERABLES Final Re sult Performing Organization Address [facility] de Phone Number [facility] [address] [place] [phone] * Hepatitis C Antibody with Reflex to HCV, RNA, Quantitative, Real-Time PCR (12/14/2023 12:59 PM EDT) Hepatitis C Antibody Nonreactive Nonreactive [facility] Comment:Antibodies to HCV no t detected; does not exclude early acuteHCV infection. Blood Venous blood specimen / Unknown 12/14/2023 12:59 PM EDT 12/14/2023 12:59 PM EDT Melissa Stauffer MD LAB BLOOD ORDERABLES Final Re sult Performing Organization Address [facility] de Phone Number [facility] [address] [place] [phone] * HIV-1/2 Antigen and Antibodies, Fourth Generation, with Reflexes (12/14/2023 12:59 PM EDT) HIV AB/AG Nonreactive Nonreactive [facility] Comment:HIV-1 p24 Ag and/or HIV-1/HIV-2 Ab not detected.A test result that is nonreactive does not exclude thepossibility of exposure to or infection with HIV-1 and/orHIV-2. Nonreactive results in this assay for individualswith prior exposure to HIV-1 and/or HIV-2 may be due toantigen and antibody levels that are below the limit ofdetection of this assay.The [employer] HIV Ag/Ab Combo assay result andsupplemental assay results should be interpreted inconjunction with the patient's clinical presentation,history and other laboratory results. If the results areinconsistent with clinical evidence, additional testing issuggested to confirm the result. Blood Venous blood specimen / Unknown 12/14/2023 12:59 PM EDT 12/14/2023 12:59 PM EDT us Melissa Stauffer MD LAB BLOOD ORDERABLES Final Re sult [facility] [address] [place] [phone] * Pap Smear (12/14/2023 12:00 AM EDT) SOURCE: SEE NOTE [facility] Comment:None given Report Status: [facility] Clinical Information: SEE NOTE [facility] Comment:None given LMP: SEE NOTE [facility] Comment:NONE GIVEN Prev. PAP: SEE NOTE [facility] Comment:NONE GIVEN Prev. BX: SEE NOTE [facility] Comment:NONE GIVEN Statement Of Adequacy: SEE [facility] Comment:Satisfactory for héctor luation.Endocervical/transformation zone componentpresent.Partially obscuring inflammation General Categorization: [facility] Interpretation/Result: SEE NOTE [facility] Comment:Cytology Results: Ne gative for intraepitheliallesion or malignancy. Cytology Comment SEE NOTE [facility] Comment:This Pap test has be en evaluated with computerassisted technology. Court Worker: SEE NOTE [facility] Comment:MSM, CT(ASCP)CT scre ening location: [address] Worker: [facility] Pathologist [facility] PAP Infection [facility] See Note SEE NOTE [facility] Comment:EXPLANATORY NOTE:The Pap is a screening test for cervical cancer. It isnot a diagnostic test and is subject to false negativeand false positive results. It is most reliable when asatisfactory sample, regularly obtained, is submittedwith relevant clinical findings and history, and whenthe Pap result is evaluated along with historic andcurrent clinical information.THIS TEST WAS PERFORMED AT:[facility] [address] [id number] MATAMOROS MD Pap Vial Vaginal structure / Unknown 12/14/2023 12/14/2023 Narrative [facility] - 12/17/2023 10:34 AM EDT SEE SCANNED RESULTS IN EMR us Melissa Stauffer MD LAB PATHOLOGY ORDERABLES eLna srinivasan Result [facility] [address] [place] [phone] * Chlamydia/N. Gonorrhoeae RNA, TMA, Urogenitial (12/14/2023 12:00 AM EDT) CT PCR NOT DETECTED Not Detect. [facility] Comment:A not detected test result [...] psychologicalconsequences. NG PCR NOT DETECTED Not Detect. [facility] Comment:A not detected test result [...] psychologicalconsequences. Urine (Urine, Random) 12/14/2023 12/14/2023 Narrative [facility] - 12/14/2023 4:29 PM EDT Urine us Melissa Stauffer MD LAB MICROBIOLOGY - GENERAL OR DERABLES Final Result [facility] [address] [place] [phone] from Last 3 Months or Most Recently Relevant to Health Maintenance Insurance [facility] C3 Member Subscriber Plan / Payer (Ef fective 2023-Present) Name:Meir Anne Relation to Subscriber:Self Name:Meir Anne Payer ID:Not on file Group ID:Not on file Type:Medicaid Address: [facility] [id number] [place] [id number] [facility] [place] [id number] [facility] [place] [address] Care Teams Child'S Nurse Relationship Specialty Start Date End Date Melissa Stauffer MD [address] [place] [phone] PCP - General Family Medicine 12/09/23
--- OUTSIDE RECORDS SUMMARY | 2025-01-30 20:39 | XMS_ITS | Encounter Summary ---
Author Organization [employer] Address [address] [place] [address] [address] [place] [address] Care Team Providers Care Communications Media Professor Name Role Phone Saravanan Carroll MD Primary Care Prov ider Melissa Stauffer MD Primary Care Provider [phone] Reason for Visit * Reason Onset Date Comments New Patient 03/09/2023 Encounter Details Date Type Department Care Team ([facility] st Contact Info) Description 03/09/2023 Telephone [facility] [address] [place] [address] Patrick Ram MD [address], [place] [phone] New Patient Social History Tobacco Use Types [...] not take insurance to please switch to [employer] C3, no answer/left Vm to call back at [phone]. documented in this encounter Plan of Treatment Not on file documented as of this encounter Visit Diagnoses Not on filedocumented in this encounter Care Teams Communications Media Professor Relationship Specialty Start Date End Date Saravanan Carroll MD [address] [place] [phone] PCP - General Internal Medicine 09/10/23 12/08/23 Melissa Stauffer MD [address] [place] [phone] PCP - General Family Medicine 12/09/23 documented as of this encounter
[2025-01-30 20:50] LABS: Alanine Aminotransferase 22 U/L (0-31); Albumin Level 4.7 g/dL (3.5-5.0); Alkaline Phosphatase 60 U/L (39-117); Anion Gap 12 (12-20); Aspartate Amino Transferase 20 U/L (5-31); Blood Urea Nitrogen 13 mg/dL (9-16); Calcium 9.2 mg/dL (8.4-10.2); Carbon Dioxide 26 mmol/L (22-29); Chloride 106 mmol/L (96-108); Creatinine Clr Calc Pharmacy 118.0; Estimated Glomerular Filt Rate > 60; Lipase 28 U/L (8-78); Potassium 4.1 mmol/L (3.3-5.1); Sodium 140 mmol/L (135-145); Total Protein 7.5 g/dL (6.5-8.0)
[2025-01-30 20:58] VITALS: BP 113/58; PULSE 86; RESP 16; TEMP 37; O2SAT 99
[2025-01-30 22:52] LABS: Appearance Urine Clear; Glucose Urine UA Negative (Negative); PH 7.0 (5.0-9.0); Specific Gravity - Urine <= 1.005 (1.005-1.025); UMIC TRIGGER UACC YES
[2025-01-31] MEDS: iohexoL 350 MG/ML 100 ML INFUS..BTL 85 ML IV (01:14)
[2025-01-31 02:37] VITALS: BP 102/57; PULSE 86; RESP 16; TEMP 36.7; O2SAT 99
[2025-01-31 02:43] VITALS: BP 102/57; PULSE 86; RESP 16; TEMP 36.7; O2SAT 99
== END 2025-01-31 02:44 | disposition home or self-care (01) ==
PROVIDERS: Physician Assistant Medical; Emergency Provider Student in an Organized Health Care Education/Training Program; PCP Family Medicine
DX: N83.201 Unspecified ovarian cyst, right side (principal); R10.2 Pelvic and perineal pain
CPT/HCPCS: 36415; 74177; 76830; 76856; 80048; 80076; 81001; 83690; 84702; 85025; 93975; 99284; 99285; Q9967

== ENCOUNTER → 2025-01-30 22:41 | Outpatient (BNV) | payer MEDICAID, SELFPAY | PROVIDERS: Emergency Provider Student in an Organized Health Care Education/Training Program; PCP Family Medicine; Visit Provider Radiology Diagnostic Radiology | DX: R10.2 Pelvic and perineal pain (principal) | CPT/HCPCS: 76830 ==

== ENCOUNTER → 2025-01-31 00:27 | Outpatient (BNV) | payer MEDICAID, SELFPAY | PROVIDERS: Emergency Provider Student in an Organized Health Care Education/Training Program; PCP Family Medicine; Visit Provider Radiology Diagnostic Radiology | DX: N83.9 Noninflammatory disorder of ovary, fallopian tube and broad ligament, unspecified (principal) | CPT/HCPCS: 74177 ==